=== PATIENT | male | born 1980 | race Caucasian/White ===

== ENCOUNTER 2017-09-30 20:19 | Emergency (ER) | payer BC ==
[2017-09-30 20:43] VITALS: RESP 18; TEMP 99.4
[2017-09-30] MEDS ORDERED: RX INFO: IV CONTRAST WAS GIVEN 1 EACH MISC MISCELLANE PRN (21:32)
[2017-09-30] MEDS ORDERED: SODIUM CHLORIDE 0.9% 1,000 ML IV STA (21:32)
[2017-09-30] MEDS ORDERED: HYDROmorphone 2 MG/ML 1 ML SYRINGE IVP STA (21:32)
[2017-09-30] MEDS ORDERED: ONDANSETRON 4 MG/2 ML VIAL IVP STA (21:32)
[2017-09-30 22:15] LABS: Appearance,Urine Clear (Clear); Bilirubin,Urine Negative (Negative); Blood,Urine Negative (Negative); Color,Urine Yellow; Glucose,Urine (UA) Negative (Negative); Ketones,Urine Negative (Negative); Leukocyte Esterase,Urine Negative (Negative); Nitrite,Urine Negative (Negative); PH, Urine 5.5 (5.0-8.0); Protein,Urine Negative (Negative); Specific Gravity,Urine 1.018 (1.001-1.035); Urobilinogen,Urine <2.0 mg/dL (<2.0)
[2017-09-30] MEDS ORDERED: LABETALOL 5 MG/ML VIAL MDV IVP STA (22:17)
--- NOTE | 2017-09-30 22:18 | ED ---
Abdominal Pain HPI - General Chief Complaint: Abdominal Pain Stated Complaint: Abd Pain Time Seen by Provider: 09/30/17 21:16 Source: patient, RN notes reviewed, old records reviewed Mode of arrival: ambulatory Limitations: no limitations - History of Present Illness Initial Comments: This patient is a [id number] male presents emergency department today chief complaint of left side abdominal pain. He reports he woke up this morning with the pain. He reports he's had normal bowel movements. Denies any nausea or vomiting fevers or chills. Patient states he has no urinary symptoms. He states the pain is worse with certain movements going over bumps in the car. Patient reports that he has not seen a medical doctor in many years. He does have a history of hypertension. - Related Data Home Medications Medication Instructions Recorded Confirmed No Known Home Medications [No 09/30/17 09/30/17 Known Home Medications] Allergies Allergy/AdvReac Type Severity Reaction Status Date / Time No Known Allergies Allergy Verified 09/30/17 21:15 Review of Systems ROS Statement: Those systems with pertinent positive or pertinent negative responses have been documented in the HPI. ROS Other: All systems not noted in ROS Statement are negative. Past Medical History Past Medical History: No Reported History History of Any Multi-Drug Resistant Organisms: None Reported Past Surgical History: No Surgical Hx Reported Past Psychological History: No Psychological Hx Reported Smoking Status: Current every day smoker Past Alcohol Use History: Occasional Past Drug Use History: Marijuana General Exam - General Exam Comments Initial Comments: This patient is a 37-year-old morbidly obese male. Limitations: no limitations General appearance: alert, in no apparent distress Head exam: Present: atraumatic, normocephalic, normal inspection Eye exam: Present: normal appearance, PERRL, EOMI. Absent: scleral icterus, conjunctival injection, periorbital swelling ENT exam: Present: normal exam, mucous membranes moist Neck exam: Present: normal inspection. Absent: tenderness, meningismus, lymphadenopathy Respiratory exam: Present: normal lung sounds bilaterally. Absent: respiratory distress, wheezes, rales, rhonchi, stridor Cardiovascular Exam: Present: regular rate, normal rhythm, normal heart sounds. Absent: systolic murmur, diastolic murmur, rubs, gallop, clicks GI/Abdominal exam: Present: soft, tenderness (Left abdominal tenderness, worse with movement. ), normal bowel sounds. Absent: distended, guarding, rebound, rigid Extremities exam: Present: normal inspection, full ROM, normal capillary refill. Absent: tenderness, pedal edema, joint swelling, calf tenderness Back exam: Present: normal inspection Neurological exam: Present: alert, oriented X3, CN II-XII intact Psychiatric exam: Present: normal affect, normal mood Course Vital Signs 09/30/17 09/30/17 20:40 22:37 Temperature 99.4 F Pulse Rate 100 92 Respiratory 18 18 Rate Blood Pressure 190/102 162/82 O2 Sat by Pulse 97 96 Oximetry Medical Decision Making - Medical Decision Making This is a 37-year-old male with history of morbid obesity and hypertension presents today with left side abdominal pain that started this morning when he woke up. He has no other associated symptoms including fever, chills, nausea, vomiting or changes in bowel habits. Patient does have some tenderness over the abdomen. Specifically left quadrant. It's worse with certain movements. Patient was given IV fluids labwork obtained. Patient's labwork was all reviewed and within normal limits. Patient's urinalysis is negative. At this time I did do a computed tomography scan given patient's obesity unable to fully identified on its cause of patient's pain. CT is negative for any acute process. Discussed most likely musculoskeletal pain. Patient informed of these results. Patient is a pressure to his care. I discussed Motrin Tylenol and antiinflammatory medication. Discussed heat. Patient does have a primary care provider appointment on October 16. Discussed the importance of following up. Discussed the importance of weight loss as well. Patient agrees treatment plan will comply. Return parameters were discussed. - Lab Data Result diagrams: 09/30/17 22:05 09/30/17 22:05 Lab Results 09/30/17 09/30/17 09/30/17 Range/Units 22:05 22:05 22:05 WBC 10.1 (3.8-10.6) k/uL RBC 5.19 (4.30-5.90) m/uL Hgb 13.6 (13.0-17.5) gm/dL Hct 43.3 (39.0-53.0) % MCV 83.4 (80.0-100.0) fL MCH 26.2 (25.0-35.0) pg MCHC 31.4 (31.0-37.0) g/dL RDW 15.8 H (11.5-15.5) % Plt Count 291 (150-450) k/uL Neutrophils % 74 % Lymphocytes % 17 % Monocytes % 5 % Eosinophils % 2 % Basophils % 0 % Neutrophils # 7.5 (1.3-7.7) k/uL Lymphocytes # 1.7 (1.0-4.8) k/uL Monocytes # 0.5 (0-1.0) k/uL Eosinophils # 0.2 (0-0.7) k/uL Basophils # 0.0 (0-0.2) k/uL Hypochromasia Slight PT 9.5 (9.0-12.0) sec INR 1.0 (<1.2) APTT 22.8 (22.0-30.0) sec Sodium 142 (137-145) mmol/L Potassium 4.2 (3.5-5.1) mmol/L Chloride 102 (98-107) mmol/L Carbon Dioxide 29 (22-30) mmol/L Anion Gap 11 mmol/L BUN 15 (9-20) mg/dL Creatinine 0.60 L (0.66-1.25) mg/dL Est GFR (MDRD) Af Amer >60 (>60 ml/min/1.73 sqM) Est GFR (MDRD) Non-Af >60 (>60 ml/min/1.73 sqM) Glucose 103 H (74-99) mg/dL Calcium 9.8 (8.4-10.2) mg/dL Total Bilirubin 0.3 (0.2-1.3) mg/dL AST 27 (17-59) U/L ALT 41 (21-72) U/L Alkaline Phosphatase 78 (38-126) U/L Troponin I (0.000-0.034) ng/mL Total Protein 7.7 (6.3-8.2) g/dL Albumin 4.3 (3.5-5.0) g/dL Amylase 52 (30-110) U/L Lipase 50 (23-300) U/L Urine Color Urine Appearance (Clear) Urine pH (5.0-8.0) Ur Specific [place] (1.001-1.035) Urine Protein (Negative) Urine Glucose (UA) (Negative) Urine Ketones (Negative) Urine Blood (Negative) Urine Nitrite (Negative) Urine Bilirubin (Negative) Urine Urobilinogen (<2.0) mg/dL Ur Leukocyte Esterase (Negative) 09/30/17 09/30/17 Range/Units 22:05 22:05 WBC (3.8-10.6) k/uL RBC (4.30-5.90) m/uL Hgb (13.0-17.5) gm/dL Hct (39.0-53.0) % MCV (80.0-100.0) fL MCH (25.0-35.0) pg MCHC (31.0-37.0) g/dL RDW (11.5-15.5) % Plt Count (150-450) k/uL Neutrophils % % Lymphocytes % % Monocytes % % Eosinophils % % Basophils % % Neutrophils # (1.3-7.7) k/uL Lymphocytes # (1.0-4.8) k/uL Monocytes # (0-1.0) k/uL Eosinophils # (0-0.7) k/uL Basophils # (0-0.2) k/uL Hypochromasia PT (9.0-12.0) sec INR (<1.2) APTT (22.0-30.0) sec Sodium (137-145) mmol/L Potassium (3.5-5.1) mmol/L Chloride (98-107) mmol/L Carbon Dioxide (22-30) mmol/L Anion Gap mmol/L BUN (9-20) mg/dL Creatinine (0.66-1.25) mg/dL Est GFR (MDRD) Af Amer (>60 ml/min/1.73 sqM) Est GFR (MDRD) Non-Af (>60 ml/min/1.73 sqM) Glucose (74-99) mg/dL Calcium (8.4-10.2) mg/dL Total Bilirubin (0.2-1.3) mg/dL AST (17-59) U/L ALT (21-72) U/L Alkaline Phosphatase (38-126) U/L Troponin I <0.012 (0.000-0.034) ng/mL Total Protein (6.3-8.2) g/dL Albumin (3.5-5.0) g/dL Amylase (30-110) U/L Lipase (23-300) U/L Urine Color Yellow Urine Appearance Clear (Clear) Urine pH 5.5 (5.0-8.0) Ur Specific [place] 1.018 (1.001-1.035) Urine Protein Negative (Negative) Urine Glucose (UA) Negative (Negative) Urine Ketones Negative (Negative) Urine Blood Negative (Negative) Urine Nitrite Negative (Negative) Urine Bilirubin Negative (Negative) Urine Urobilinogen <2.0 (<2.0) mg/dL Ur Leukocyte Esterase Negative (Negative) - Radiology Data Radiology results: report reviewed Patient CT shows evidence of coronary megaly an umbilical hernia noted. Normal appendix. Dilated images show very little contrast within the renal collecting systems which could relate to renal failure. Clinical correlation is recommended. I did discuss this. He has normal BUN and creatinine. Disposition Clinical Impression: Muscular abdominal pain in left lower quadrant Disposition: HOME SELF-CARE Condition: Good Instructions: Abdominal Pain (ED) Additional Instructions: Patient has a take Motrin Tylenol for pain. Apply OVER the area. Limit follow- up with primary care physician. Return to the emergency department if any alarming signs or symptoms occur. Referrals: Rocco Rodrigez DO [Primary Care Provider] - 1-2 days Time of Disposition: 23:31
[2017-09-30 22:20] LABS: Basophils % (A) 0 %; Eosinophils # (A) 0.2 k/uL (0-0.7); Eosinophils % (A) 2 %; HCT 43.3 % (39.0-53.0); HGB 13.6 gm/dL (13.0-17.5); Hypochromasia Slight; Lymphocytes # (A) 1.7 k/uL (1.0-4.8); Lymphocytes % (A) 17 %; MCH 26.2 pg (25.0-35.0); MCHC 31.4 g/dL (31.0-37.0); MCV 83.4 fL (80.0-100.0); Mean Platelet Volume 7.7; Monocytes # (A) 0.5 k/uL (0-1.0); Monocytes % (A) 5 %; Neutrophils # (A) 7.5 k/uL (1.3-7.7); Neutrophils % (A) 74 %; Platelet Count 291 k/uL (150-450); RBC 5.19 m/uL (4.30-5.90); RDW 15.8 % (11.5-15.5); WBC 10.1 k/uL (3.8-10.6)
[2017-09-30 22:27] LABS: Partial Thromboplastin Time 22.8 sec (22.0-30.0); Prothrombin Time 9.5 sec (9.0-12.0)
[2017-09-30 22:32] LABS: ALT 41 U/L (21-72); AST 27 U/L (17-59); Albumin 4.3 g/dL (3.5-5.0); Alkaline Phosphatase 78 U/L (38-126); Amylase 52 U/L (30-110); Anion Gap 11 mmol/L; Blood Urea Nitrogen 15 mg/dL (9-20); Calcium 9.8 mg/dL (8.4-10.2); Carbon Dioxide 29 mmol/L (22-30); Chloride 102 mmol/L (98-107); Glucose 103 mg/dL (74-99); Lipase 50 U/L (23-300); Sodium 142 mmol/L (137-145); Total Bilirubin 0.3 mg/dL (0.2-1.3); Total Protein 7.7 g/dL (6.3-8.2)
[2017-09-30 22:34] LABS: Potassium 4.2 mmol/L (3.5-5.1)
[2017-09-30 22:39] VITALS: BP 162/82; PULSE 92
--- NOTE | 2017-09-30 22:51 | CT ---
EXAMINATION TYPE: CT abdomen pelvis w con DATE OF EXAM: 09/30/2017 COMPARISON: None HISTORY: Abdominal pain today. CT DLP: 5357.3 mGycm Automated exposure control for dose reduction was used. TECHNIQUE: Helical acquisition of images was performed from the lung bases through the pelvis. CONTRAST: Performed without Oral Contrast and with IV Contrast, patient injected with 100 mL of Omnipaque 300. FINDINGS: The lung bases are clear of consolidation. There is no pleural effusion. There is no pericardial effu marguerite. Heart is slightly enlarged. Liver spleen pancreas appear normal. Gallbladder appears normal. Bile ducts are not dilated. There is no adrenal mass. Kidneys have normal size and contour. There is no hydronephrosis. There is satisfac tory contrast opacification of the kidneys. There is very little contrast in the kidneys on the delay ed images in the renal collecting systems. There is no retroperitoneal adenopathy. There is no ascite s. Bladder distends smoothly. There is no evidence of a pelvic mass. I see no bony destructive proces s. There is no intestinal wall thickening. There are no dilated loops. There is mild facet arthropath y in the lower lumbar spine. There is no sign of appendicitis. There is umbilical hernia that contain s omental fat. IMPRESSION: CARDIOMEGALY. UMBILICAL HERNIA. NORMAL APPENDIX. DELAYED IMAGES SHOW VERY LITTLE CONTRAST IN THE RENAL COLLECTING SYSTEMS THAT COULD RELATE TO ACUTE R ENAL FAILURE. CLINICAL CORRELATION IS RECOMMENDED.
== END 2017-09-30 23:45 | disposition home or self-care (01) ==
LOC: EC 20:19
DX: R10.32 Left lower quadrant pain (principal); K42.9 Umbilical hernia without obstruction or gangrene; E66.01 Morbid (severe) obesity due to excess calories; F17.200 Nicotine dependence, unspecified, uncomplicated; Z68.43 Body mass index [BMI] 50.0-59.9, adult; Z53.8 Procedure and treatment not carried out for other reasons
CPT/HCPCS: 99285; 96374; 96375; 96361 ×2; 36415; 80053; 82150; 83690; 84484; 85025; 85610; 85730; 81003; 74177; J1170; J2405; Q9967

== ENCOUNTER 2018-11-03 13:46 | Emergency (ER) | payer BC ==
[2018-11-03 14:24] VITALS: RESP 18
[2018-11-03] MEDS ORDERED: SODIUM CHLORIDE 0.9% 1,000 ML IV STA (14:27)
--- NOTE | 2018-11-03 14:59 | ED ---
Abdominal Pain HPI - General Chief Complaint: Abdominal Pain Stated Complaint: Abd pain Time Seen by Provider: 11/03/18 14:27 Source: patient, RN notes reviewed, old records reviewed Mode of arrival: ambulatory Limitations: no limitations - History of Present Illness Initial Comments: 28-year-old male to the ER for evaluation. Patient presented with left lower quadrant abdominal pain history of the same 05 and 10 years ago unsure of cause was. Patient was in ER one year ago for abdominal pain unsure of cause. Patient denies nausea no vomiting no fevers. No diarrhea no blood in his stool no dysuria. Patient symptoms are progressive but started suddenly, worsening no modifying factors. Patient has no known significant medical history no surgical history MD Complaint: abdominal pain -: days(s) Location: LLQ, suprapubic Radiation: LLQ, suprapubic Severity: mild Severity scale (1-10): 2 Quality: aching Consistency: constant Improves With: nothing Worsens With: nothing Associated Symptoms: nausea, vomiting - Related Data Home Medications Medication Instructions Recorded Confirmed Ibuprofen [Motrin Ib] 800 mg PO Q6H PRN 11/03/18 11/03/18 Allergies Allergy/AdvReac Type Severity Reaction Status Date / Time No Known Allergies Allergy Verified 11/03/18 14:41 Review of Systems ROS Statement: Those systems with pertinent positive or pertinent negative responses have been documented in the HPI. ROS Other: All systems not noted in ROS Statement are negative. Past Medical History Past Medical History: No Reported History History of Any Multi-Drug Resistant Organisms: None Reported Past Surgical History: No Surgical Hx Reported Past Psychological History: No Psychological Hx Reported Smoking Status: Current every day smoker Past Alcohol Use History: Occasional Past Drug Use History: Marijuana General Exam Limitations: no limitations General appearance: alert, in no apparent distress, obese Head exam: Present: atraumatic, normocephalic, normal inspection Eye exam: Present: normal appearance, PERRL, EOMI. Absent: scleral icterus, conjunctival injection, periorbital swelling ENT exam: Present: normal exam, mucous membranes moist Neck exam: Present: normal inspection. Absent: tenderness, meningismus, lymphadenopathy Respiratory exam: Present: normal lung sounds bilaterally. Absent: respiratory distress, wheezes, rales, rhonchi, stridor Cardiovascular Exam: Present: regular rate, normal rhythm, normal heart sounds. Absent: systolic murmur, diastolic murmur, rubs, gallop, clicks GI/Abdominal exam: Present: soft, normal bowel sounds. Absent: distended, tenderness, guarding, rebound, rigid Extremities exam: Present: normal inspection, full ROM, normal capillary refill. Absent: tenderness, pedal edema, joint swelling, calf tenderness Back exam: Present: normal inspection Neurological exam: Present: alert, oriented X3, CN II-XII intact Psychiatric exam: Present: normal affect, normal mood Skin exam: Present: warm, dry, intact, normal color. Absent: rash Course Vital Signs 11/03/18 14:20 Temperature 98.4 F Pulse Rate 97 Respiratory 18 Rate Blood Pressure 189/105 O2 Sat by Pulse 97 Oximetry - Reevaluation(s) Reevaluation #1: 11/03/18 16:07 Medical record is reviewed Reevaluation #2: 11/03/18 16:07 Patient has pain control Medical Decision Making - Medical Decision Making 28 male the ER for evaluation of bowel pain, nonspecific. Left lower quadrant, labwork is normal CT is normal. Patient can be discharged - Lab Data Result diagrams: 11/03/18 14:55 11/03/18 14:55 Lab Results 11/03/18 11/03/18 Range/Units 14:55 14:55 WBC 9.1 (3.8-10.6) k/uL RBC 5.37 (4.30-5.90) m/uL Hgb 13.8 (13.0-17.5) gm/dL Hct 44.4 (39.0-53.0) % MCV 82.7 (80.0-100.0) fL MCH 25.8 (25.0-35.0) pg MCHC 31.2 (31.0-37.0) g/dL RDW 14.9 (11.5-15.5) % Plt Count 310 (150-450) k/uL Neutrophils % 79 % Lymphocytes % 12 % Monocytes % 6 % Eosinophils % 1 % Basophils % 0 % Neutrophils # 7.2 (1.3-7.7) k/uL Lymphocytes # 1.1 (1.0-4.8) k/uL Monocytes # 0.6 (0-1.0) k/uL Eosinophils # 0.1 (0-0.7) k/uL Basophils # 0.0 (0-0.2) k/uL Sodium 141 (137-145) mmol/L Potassium 4.4 (3.5-5.1) mmol/L Chloride 106 (98-107) mmol/L Carbon Dioxide 27 (22-30) mmol/L Anion Gap 8 mmol/L BUN 18 (9-20) mg/dL Creatinine 0.60 L (0.66-1.25) mg/dL Est GFR (CKD-EPI)AfAm >90 (>60 ml/min/1.73 sqM) Est GFR (CKD-EPI)NonAf >90 (>60 ml/min/1.73 sqM) Glucose 133 H (74-99) mg/dL Calcium 9.0 (8.4-10.2) mg/dL Total Bilirubin 0.4 (0.2-1.3) mg/dL AST 22 (17-59) U/L ALT 51 (21-72) U/L Alkaline Phosphatase 88 (38-126) U/L Total Protein 6.9 (6.3-8.2) g/dL Albumin 4.2 (3.5-5.0) g/dL Amylase 34 (30-110) U/L Lipase 65 (23-300) U/L - Radiology Data Radiology results: report reviewed (CT abdomen pelvis negative for acute disease ), image reviewed Disposition Clinical Impression: Abdominal pain Disposition: HOME SELF-CARE Condition: Good Instructions (If sedation given, give patient instructions): Abdominal Pain (ED ) Is patient prescribed a controlled substance at d/c from ED?: No Referrals: Rocco Rodrigez DO [Primary Care Provider] - 1-2 days
[2018-11-03 15:17] LABS: Basophils % (A) 0 %; Eosinophils # (A) 0.1 k/uL (0-0.7); Eosinophils % (A) 1 %; HCT 44.4 % (39.0-53.0); HGB 13.8 gm/dL (13.0-17.5); Lymphocytes # (A) 1.1 k/uL (1.0-4.8); Lymphocytes % (A) 12 %; MCH 25.8 pg (25.0-35.0); MCHC 31.2 g/dL (31.0-37.0); MCV 82.7 fL (80.0-100.0); Mean Platelet Volume 6.8; Monocytes # (A) 0.6 k/uL (0-1.0); Monocytes % (A) 6 %; Neutrophils # (A) 7.2 k/uL (1.3-7.7); Neutrophils % (A) 79 %; Platelet Count 310 k/uL (150-450); RBC 5.37 m/uL (4.30-5.90); RDW 14.9 % (11.5-15.5); WBC 9.1 k/uL (3.8-10.6)
[2018-11-03 15:26] LABS: ALT 51 U/L (21-72); AST 22 U/L (17-59); Albumin 4.2 g/dL (3.5-5.0); Alkaline Phosphatase 88 U/L (38-126); Amylase 34 U/L (30-110); Anion Gap 8 mmol/L; Blood Urea Nitrogen 18 mg/dL (9-20); Carbon Dioxide 27 mmol/L (22-30); Chloride 106 mmol/L (98-107); Glucose 133 mg/dL (74-99); Lipase 65 U/L (23-300); Potassium 4.4 mmol/L (3.5-5.1); Sodium 141 mmol/L (137-145); Total Bilirubin 0.4 mg/dL (0.2-1.3); Total Protein 6.9 g/dL (6.3-8.2)
--- NOTE | 2018-11-03 16:27 | CT ---
EXAMINATION TYPE: CT abdomen pelvis wo con DATE OF EXAM: 11/03/2018 COMPARISON: 09/30/2017 INDICATION: Left lower quadrant to groin pain. DLP: 2885 mGycm, Automated exposure control for dose reduction was used. CONTRAST: 0 mL of Isovue 300. Study performed without Oral Contrast TECHNIQUE: Axial images were obtained from above the diaphragm to the pubic rami in the axial plane a t 5 mm thick sections. Reconstructed images are reviewed on the computer in the coronal plane. FINDINGS: Limited CT sections are obtained the lung bases. The lung bases are clear. CT ABDOMEN: Liver: There is mild fatty infiltration to the liver. No discrete masses or cysts are evident. Spleen: Normal Pancreas: Normal Adrenal glands: The adrenal glands are normal. Gallbladder: Normal Kidneys: No masses are evident. No hydronephrosis is present. No cysts are present. No renal stone s are identified. No hydroureter is evident. Aorta: Normal Inferior vena cava: Normal. CT PELVIS: There is a periumbilical hernia containing mesenteric fat measuring approximately 1.9 cm a n opening. Loops of bowel within the abdomen and pelvis are normal. There are loops of bowel which are incom pletely distended or lack oral contrast limiting their evaluation. Appendix: Normal as visualized. Urinary bladder: Normal. Genitourinary structures: Prostate is prominent. Osseous structures: No suspicious lytic or sclerotic lesions. Phlebolith is noted within the pelvis. IMPRESSIONS: 1. Periumbilical hernia containing mesenteric fat. 2. No suspicious renal or ureteral stones. No hydronephrosis or hydroureter is evident.
[2018-11-03 16:59] VITALS: BP 135/75; PULSE 87; TEMP 97.4
== END 2018-11-03 16:55 | disposition home or self-care (01) ==
LOC: EC 13:46
DX: R10.32 Left lower quadrant pain (principal); R11.2 Nausea with vomiting, unspecified; F17.200 Nicotine dependence, unspecified, uncomplicated
CPT/HCPCS: 36415; 74176; 80053; 82150; 83690; 85025; 96360; 99284

== ENCOUNTER 2019-04-23 13:47 | Emergency (ER) | payer BC ==
[2019-04-23 13:55] VITALS: TEMP 98.2
--- NOTE | 2019-04-23 14:31 | ED ---
General Adult HPI - General Source: patient Mode of arrival: ambulatory Limitations: no limitations <Monico Canchola - Last Filed: 04/23/19 14:31> <Saira Zamora - Last Filed: 04/24/19 02:04> - General Chief complaint: Psychiatric Symptoms Stated complaint: Mental Health Time Seen by Provider: 04/23/19 14:03 - History of Present Illness Initial comments: Dictation was produced using [employer] dictation software. please excuse any grammatical, word or spelling errors. Chief Complaint: 39-year-old male past medical history of hypertension presents with suicidal ideation. History of Present Illness: A 39-year-old male who presents with suicidal ideation. Patient has been depressed with relationships, family and work. Patient is considering overdosing on his blood pressure meds. Patient did attempt suicide 12 years ago. He has no other psychiatric history. Patient has no medical illness at this time. He presents here voluntarily. The ROS documented in this emergency department record has been reviewed and confirmed by me. Those systems with pertinent positive or negative responses have been documented in the HPI. All other systems are other negative and/or noncontributory. PHYSICAL EXAM: General Impression: Alert and oriented x3, not in acute distress HEENT: Normocephalic atraumatic, extra-ocular movements intact, pupils equal and reactive to light bilaterally, mucous membranes moist. Cardiovascular: Heart regular rate and rhythm, S1&S2 audible, no murmurs, rubs or gallops Chest: Lungs clear to auscultation bilaterally, no rhonchi, no wheeze, no rales Abdomen: Bowel sounds present, abdomen soft, non-tender, non-distended, no organomegaly Musculoskeletal: Pulses present and equal in all extremities, no peripheral edema Motor: no focal deficits noted Neurological: CN II-XII grossly intact, no focal motor or sensory deficits noted Skin: Intact with no visualized rashes Psych: Normal affect and mood ED course: 39 yo Male presents with chief complaint of suicidal ideation. All signs upon arrival shows blood pressure 192/139, worse vital signs within acceptable limits. Patient has no hypertension complaints. Patient feels well medically. Patient's medical cleared for EPS evaluation. (Monico Canchola) - Related Data Home Medications Medication Instructions Recorded Confirmed No Known Home Medications 04/23/19 04/23/19 Allergies Allergy/AdvReac Type Severity Reaction Status Date / Time No Known Allergies Allergy Verified 04/23/19 14:09 Review of Systems ROS Other: All systems not noted in ROS Statement are negative. <Monico Canchola - Last Filed: 04/23/19 14:31> ROS Other: All systems not noted in ROS Statement are negative. <Saira Zamora - Last Filed: 04/24/19 02:04> ROS Statement: Those systems with pertinent positive or pertinent negative responses have been documented in the HPI. Past Medical History Past Medical History: Hypertension History of Any Multi-Drug Resistant Organisms: None Reported Past Surgical History: No Surgical Hx Reported Past Psychological History: Depression Smoking Status: Current every day smoker Past Alcohol Use History: Rare Past Drug Use History: Marijuana <Monico Canchola - Last Filed: 04/23/19 14:31> General Exam Limitations: no limitations <Monico Canchola - Last Filed: 04/23/19 14:31> Course Vital Signs 04/23/19 04/23/19 04/23/19 13:51 15:00 17:45 Temperature 98.2 F Pulse Rate 100 78 98 Respiratory 18 18 20 Rate Blood Pressure 192/139 156/88 168/98 O2 Sat by Pulse 95 99 98 Oximetry Medical Decision Making <Saira Zamora - Last Filed: 04/24/19 02:04> - Medical Decision Making I was asked to the patient to fill out a clinical certificate as the patient is actively suicidal with plan. He states he has a history of one previous suicide attempt, is not currently on any medications, and currently has a plan of overdosing on his blood pressure medications. Denies homicidal ideations or hallucinations. I was asked by EPS to lower the patient's blood pressure, as [facility] will not accept patient's with a SBP of >150. Patient at this time currently has asymptomatic hypertension, and lowering his blood pressure acutely is not medically indicated, and could possibly harm the patient. The patient states he takes Lisinopril HCTZ 25 mg. His home dose is ordered so he can continue his prescribed therapy. (Saira Zamora) - Lab Data Lab Results 04/23/19 Range/Units 17:40 Urine Opiates Screen Not Detected (NotDetected) Ur Oxycodone Screen Not Detected (NotDetected) Urine Methadone Screen Not Detected (NotDetected) Ur Propoxyphene Screen Not Detected (NotDetected) Ur Barbiturates Screen Not Detected (NotDetected) U Tricyclic Antidepress Not Detected (NotDetected) Ur Phencyclidine Scrn Not Detected (NotDetected) Ur Amphetamines Screen Not Detected (NotDetected) U Methamphetamines Scrn Not Detected (NotDetected) U Benzodiazepines Scrn Not Detected (NotDetected) Urine Cocaine Screen Not Detected (NotDetected) U Marijuana (THC) Screen Detected H (NotDetected) Disposition <Monico Canchola D - Last Filed: 04/23/19 14:31> Is patient prescribed a controlled substance at d/c from ED?: No - Out of Hospital Transfer - Req. Specs Out of Hospital Transfer - Requested Specifics: Psychiatric Non-ICU ([facility]) <Saira Zamora E - Last Filed: 04/24/19 02:04> Clinical Impression: Suicidal ideations Disposition: TRANSFER TO PSYCH HOSP/UNIT Referrals: Rocco Rodrigez DO [Primary Care Provider] - 1-2 days
[2019-04-23] MEDS ORDERED: KETOROLAC 30 MG/ML 1 ML VIAL IM STA (15:51)
[2019-04-23 18:19] LABS: Amphetamine Screen,Urine Not Detected (NotDetected); Barbiturate Screen,Urine Not Detected (NotDetected); Benzodiazepines Screen,Urine Not Detected (NotDetected); Cocaine Screen,Urine Not Detected (NotDetected); Methadone Screen, Urine Not Detected (NotDetected); Opiate Screen,Urine Not Detected (NotDetected); Oxycodone Screen, Urine Not Detected (NotDetected); Phencyclidine Screen,Urine Not Detected (NotDetected); Tricyclic Antidepressant,Urine Not Detected (NotDetected); Urn Cannabinoid Scrn Detected (NotDetected)
[2019-04-24] MEDS ORDERED: LISINOPRIL-HCTZ 20-25 MG 1 EACH TAB PO STA (02:01)
[2019-04-24 02:48] VITALS: BP 139/77; PULSE 71; RESP 18
== END 2019-04-24 06:02 ==
LOC: EC 13:47
DX: R45.851 Suicidal ideations (principal); I10 Essential (primary) hypertension; F17.200 Nicotine dependence, unspecified, uncomplicated
CPT/HCPCS: 82075; 80306; 99285; 96372; J1885

== ENCOUNTER 2019-06-08 05:37 | Inpatient (IN) | payer BC ==
[2019-06-08] MEDS ORDERED: SODIUM CHLORIDE 0.9% 2,000 ML IV STA (06:26)
[2019-06-08] MEDS ORDERED: CALCIUM GLUCONATE 1 GM in SODIUM CHLORIDE 0.9% 100 ML IVPB ONE ×2 (06:34→23:00)
[2019-06-08] MEDS ORDERED: GLUCAGON 1 MG/ML VIAL IVP STA (06:35)
--- NOTE | 2019-06-08 06:37 | ED ---
Overdose HPI - General Source: police, EMS Limitations: altered mental status - History of Present Illness Complaint: intentional overdose Onset/Timin -: hour(s) Intent: suicide attempt <Car Madsen - Last Filed: 06/08/19 07:55> <Jj Ortiz - Last Filed: 06/08/19 08:24> - General Chief Complaint: Overdose Stated Complaint: Attempted suicide Time Seen by Provider: 06/08/19 06:36 - History of Present Illness Initial Comments: Patient's 39-year-old man brought to be evaluated for suspected overdose. The patient had written a suicide letter to family members. He reportedly had taken overdose of his pills. He states that he took the pills at around 2 AM. There are number of pill vials however it is difficult to quantify the amount that would've remained as they are of various dates. Patient may have taken bupropion, amlodipine/hydrochlorothiazide, trazodone. Patient states she also had been drinking some alcohol. The patient does appear to be somnolent but arouses to voice. He is not fully cooperative with the history and physical. (Car Madsen) - Related Data Home Medications Medication Instructions Recorded Confirmed Lisinopril-Hctz 20-12.5 mg 1 tab PO DAILY 06/08/19 06/08/19 [Zestoretic 20-12.5] Sertraline [Zoloft] 100 mg PO DAILY 06/08/19 06/08/19 amLODIPine [Norvasc] 5 mg PO DAILY 06/08/19 06/08/19 buPROPion HCL [Wellbutrin SR] 200 mg PO DAILY 06/08/19 06/08/19 hydrOXYzine HCL [Atarax] 10 mg PO TID 06/08/19 06/08/19 traZODone HCL [Desyrel] 100 mg PO HS 06/08/19 06/08/19 Allergies Allergy/AdvReac Type Severity Reaction Status Date / Time No Known Allergies Allergy Verified 06/08/19 08:18 Review of Systems ROS Other: All systems not noted in ROS Statement are negative. Limitations: ROS unobtainable due to patients medical condition <Car Madsen - Last Filed: 06/08/19 07:55> ROS Other: All systems not noted in ROS Statement are negative. <Jj Ortiz - Last Filed: 06/08/19 08:24> ROS Statement: Those systems with pertinent positive or pertinent negative responses have been documented in the HPI. Past Medical History Past Medical History: Hypertension History of Any Multi-Drug Resistant Organisms: None Reported Past Surgical History: No Surgical Hx Reported Past Psychological History: Depression Smoking Status: Current every day smoker Past Alcohol Use History: Rare Past Drug Use History: Marijuana <Car Madsen - Last Filed: 06/08/19 07:55> General Exam Limitations: altered mental status General appearance: appears intoxicated Head exam: Present: atraumatic, normocephalic Eye exam: Present: PERRL, nystagmus ENT exam: Present: mucous membranes dry Neck exam: Present: normal inspection Respiratory exam: Present: normal lung sounds bilaterally. Absent: respiratory distress, wheezes, rales, rhonchi, stridor Cardiovascular Exam: Present: regular rate, normal rhythm, normal heart sounds. Absent: systolic murmur, diastolic murmur, rubs, gallop GI/Abdominal exam: Present: soft. Absent: distended, tenderness, guarding, rebound, rigid Extremities exam: Present: normal inspection, normal capillary refill. Absent: pedal edema, calf tenderness Back exam: Present: normal inspection. Absent: CVA tenderness (R), CVA tenderness (L) Neurological exam: Present: altered. Absent: motor sensory deficit Skin exam: Present: warm, dry, intact, normal color. Absent: rash <Car Madsen - Last Filed: 06/08/19 07:55> Course Vital Signs 06/08/19 06/08/19 06/08/19 05:43 05:48 05:50 Temperature 98.5 F Pulse Rate 91 86 Respiratory 24 Rate Blood Pressure 92/58 92/58 92/58 O2 Sat by Pulse 92 L 95 Oximetry 06/08/19 06/08/19 06/08/19 06:00 06:10 06:20 Temperature Pulse Rate 86 89 93 Respiratory Rate Blood Pressure 72/33 77/37 88/56 O2 Sat by Pulse 95 96 95 Oximetry 06/08/19 06/08/19 06/08/19 06:30 06:40 07:02 Temperature Pulse Rate 87 87 Respiratory 26 H Rate Blood Pressure 88/56 79/34 84/50 O2 Sat by Pulse 95 95 Oximetry 06/08/19 06/08/19 06/08/19 07:03 07:08 07:10 Temperature Pulse Rate 89 94 90 Respiratory 30 H 24 31 H Rate Blood Pressure 84/50 99/55 99/55 O2 Sat by Pulse 87 L 95 93 L Oximetry 06/08/19 06/08/19 06/08/19 07:20 07:30 07:40 Temperature Pulse Rate 79 85 86 Respiratory Rate Blood Pressure 107/53 112/53 99/48 O2 Sat by Pulse 95 94 L 92 L Oximetry 06/08/19 06/08/19 06/08/19 07:50 08:00 08:10 Temperature Pulse Rate 88 88 88 Respiratory Rate Blood Pressure 107/49 92/56 111/59 O2 Sat by Pulse 92 L 94 L 91 L Oximetry 06/08/19 08:18 Temperature Pulse Rate 88 Respiratory 20 Rate Blood Pressure 111/59 O2 Sat by Pulse 91 L Oximetry Medical Decision Making - Lab Data Result diagrams: 06/08/19 06:32 06/08/19 06:32 - EKG Data -: EKG Interpreted by Me EKG shows normal: sinus rhythm, axis (Normal), intervals (SD interval 134 ms, QRS duration 102 ms, both are normal. QTC 543 ms, which is prolonged.), QRS complexes (Normal), ST-T waves (Normal) Rate: normal (Rate 91 bpm) <Car Madsen - Last Filed: 06/08/19 07:55> - Lab Data Result diagrams: 06/08/19 06:32 06/08/19 06:32 <Jj Ortiz - Last Filed: 06/08/19 08:24> - Medical Decision Making Case endorsed to me by Dr. Hernandez for observation of blood pressure. Patient reevaluated. Patient resting comfortably in bed and easily arousable to voice. Blood pressure 101/61. Case was discussed in detail with Dr. Guallpa, covering for Dr. Rodrigez, who will admit. (Jj Ortiz) - Lab Data Lab Results 06/08/19 06/08/19 06/08/19 Range/Units 05:32 06:32 06:32 WBC 9.7 (3.8-10.6) k/uL RBC 4.53 (4.30-5.90) m/uL Hgb 12.1 L (13.0-17.5) gm/dL Hct 37.0 L (39.0-53.0) % MCV 81.7 (80.0-100.0) fL MCH 26.6 (25.0-35.0) pg MCHC 32.6 (31.0-37.0) g/dL RDW 14.9 (11.5-15.5) % Plt Count 322 (150-450) k/uL Neutrophils % 77 % Lymphocytes % 14 % Monocytes % 5 % Eosinophils % 2 % Basophils % 1 % Neutrophils # 7.5 (1.3-7.7) k/uL Lymphocytes # 1.3 (1.0-4.8) k/uL Monocytes # 0.5 (0-1.0) k/uL Eosinophils # 0.2 (0-0.7) k/uL Basophils # 0.1 (0-0.2) k/uL PT 10.1 (9.0-12.0) sec INR 0.9 (<1.2) APTT 22.3 (22.0-30.0) sec Sodium 139 (137-145) mmol/L Potassium 3.9 (3.5-5.1) mmol/L Chloride 103 (98-107) mmol/L Carbon Dioxide 24 (22-30) mmol/L Anion Gap 12 mmol/L BUN 18 (9-20) mg/dL Creatinine 1.11 (0.66-1.25) mg/dL Est GFR (CKD-EPI)AfAm >90 (>60 ml/min/1.73 sqM) Est GFR (CKD-EPI)NonAf 83 (>60 ml/min/1.73 sqM) Glucose 116 H (74-99) mg/dL Plasma Lactic Acid Tai (0.7-2.0) mmol/L Calcium 8.6 (8.4-10.2) mg/dL Magnesium 2.0 (1.6-2.3) mg/dL Total Bilirubin 0.4 (0.2-1.3) mg/dL AST 18 (17-59) U/L ALT 33 (21-72) U/L Alkaline Phosphatase 58 (38-126) U/L Troponin I (0.000-0.034) ng/mL Total Protein 6.4 (6.3-8.2) g/dL Albumin 3.7 (3.5-5.0) g/dL Salicylates <1.0 mg/dL Acetaminophen <10.0 ug/mL Serum Alcohol 15 mg/dL 06/08/19 06/08/19 Range/Units 06:32 06:32 WBC (3.8-10.6) k/uL RBC (4.30-5.90) m/uL Hgb (13.0-17.5) gm/dL Hct (39.0-53.0) % MCV (80.0-100.0) fL MCH (25.0-35.0) pg MCHC (31.0-37.0) g/dL RDW (11.5-15.5) % Plt Count (150-450) k/uL Neutrophils % % Lymphocytes % % Monocytes % % Eosinophils % % Basophils % % Neutrophils # (1.3-7.7) k/uL Lymphocytes # (1.0-4.8) k/uL Monocytes # (0-1.0) k/uL Eosinophils # (0-0.7) k/uL Basophils # (0-0.2) k/uL PT (9.0-12.0) sec INR (<1.2) APTT (22.0-30.0) sec Sodium (137-145) mmol/L Potassium (3.5-5.1) mmol/L Chloride (98-107) mmol/L Carbon Dioxide (22-30) mmol/L Anion Gap mmol/L BUN (9-20) mg/dL Creatinine (0.66-1.25) mg/dL Est GFR (CKD-EPI)AfAm (>60 ml/min/1.73 sqM) Est GFR (CKD-EPI)NonAf (>60 ml/min/1.73 sqM) Glucose (74-99) mg/dL Plasma Lactic Acid Tai 2.9 H* (0.7-2.0) mmol/L Calcium (8.4-10.2) mg/dL Magnesium (1.6-2.3) mg/dL Total Bilirubin (0.2-1.3) mg/dL AST (17-59) U/L ALT (21-72) U/L Alkaline Phosphatase (38-126) U/L Troponin I <0.012 (0.000-0.034) ng/mL Total Protein (6.3-8.2) g/dL Albumin (3.5-5.0) g/dL Salicylates mg/dL Acetaminophen ug/mL Serum Alcohol mg/dL Critical Care Time Critical Care Time: Yes Total Critical Care Time: 33 <Jj Ortiz - Last Filed: 06/08/19 08:24> Disposition <Car Madsen - Last Filed: 06/08/19 07:55> Is patient prescribed a controlled substance at d/c from ED?: No Decision Time: 08:24 <Jj Ortiz - Last Filed: 06/08/19 08:24> Clinical Impression: Overdose of calcium-channel archie Disposition: ADMITTED IP TO THIS HOSP Condition: Serious Referrals: Rocco Rodrigez DO [Primary Care Provider] - 1-2 days
[2019-06-08 06:41] LABS: Basophils # (A) 0.1 k/uL (0-0.2); Basophils % (A) 1 %; Eosinophils # (A) 0.2 k/uL (0-0.7); Eosinophils % (A) 2 %; HGB 12.1 gm/dL (13.0-17.5); Lymphocytes # (A) 1.3 k/uL (1.0-4.8); Lymphocytes % (A) 14 %; MCH 26.6 pg (25.0-35.0); MCHC 32.6 g/dL (31.0-37.0); MCV 81.7 fL (80.0-100.0); Mean Platelet Volume 7.2; Monocytes # (A) 0.5 k/uL (0-1.0); Monocytes % (A) 5 %; Neutrophils # (A) 7.5 k/uL (1.3-7.7); Neutrophils % (A) 77 %; Platelet Count 322 k/uL (150-450); RBC 4.53 m/uL (4.30-5.90); RDW 14.9 % (11.5-15.5); WBC 9.7 k/uL (3.8-10.6)
[2019-06-08 06:51] LABS: ALT 33 U/L (21-72); AST 18 U/L (17-59); Acetaminophen <10.0 ug/mL; African American GFR (CKD) >90 (>60 ml/min/1.73 sqM); Albumin 3.7 g/dL (3.5-5.0); Alcohol 15 mg/dL; Alkaline Phosphatase 58 U/L (38-126); Anion Gap 12 mmol/L; Blood Urea Nitrogen 18 mg/dL (9-20); Calcium 8.6 mg/dL (8.4-10.2); Carbon Dioxide 24 mmol/L (22-30); Chloride 103 mmol/L (98-107); Glucose 116 mg/dL (74-99); Potassium 3.9 mmol/L (3.5-5.1); Salicylate <1.0 mg/dL; Sodium 139 mmol/L (137-145); Total Bilirubin 0.4 mg/dL (0.2-1.3); Total Protein 6.4 g/dL (6.3-8.2)
[2019-06-08] MEDS ORDERED: METOCLOPRAMIDE 5 MG/ML 2 ML VIAL IVP STA (06:51)
[2019-06-08] MEDS ORDERED: SODIUM CHLORIDE 0.9% 1,000 ML IV STA (06:51)
[2019-06-08 07:21] LABS: INR 0.9 (<1.2); Partial Thromboplastin Time 22.3 sec (22.0-30.0); Prothrombin Time 10.1 sec (9.0-12.0)
--- NOTE | 2019-06-08 07:34 | XR ---
EXAMINATION TYPE: XR chest 1V portable DATE OF EXAM: 06/08/2019 HISTORY: overdose. REFERENCE: NONE. FINDINGS: The study is limited by the patient's tremendous size. The heart appears enlarged. There is vascular congestion. Both CP angles are obscured. IMPRESSION: LIMITED EXAMINATION DEMONSTRATING CARDIOMEGALY AND VASCULAR CONGESTION.
[2019-06-08] MEDS ORDERED: NALOXONE 0.4 MG/ML 1 ML VIAL IV PRN (08:24)
[2019-06-08 13:14] LABS: Amorphous Sediment,Urine Rare /hpf; Appearance,Urine Clear (Clear); Bilirubin,Urine Negative (Negative); Blood,Urine Negative (Negative); Color,Urine Yellow; Glucose,Urine (UA) Negative (Negative); Hyaline Casts,Urine 16 /lpf (0-2); Ketones,Urine Negative (Negative); Leukocyte Esterase,Urine Trace (Negative); Mucus,Urine Rare /hpf; Nitrite,Urine Negative (Negative); Protein,Urine Negative (Negative); RBC,Urine 1 /hpf (0-5); Specific Gravity,Urine 1.013 (1.001-1.035); Squamous Epithelial Cell,Urine 2 /hpf (0-4); Urobilinogen,Urine <2.0 mg/dL (<2.0); WBC,Urine 5 /hpf (0-5)
[2019-06-08 13:18] LABS: Amphetamine Screen,Urine Not Detected (NotDetected); Barbiturate Screen,Urine Not Detected (NotDetected); Benzodiazepines Screen,Urine Not Detected (NotDetected); Cocaine Screen,Urine Not Detected (NotDetected); Methadone Screen, Urine Not Detected (NotDetected); Opiate Screen,Urine Not Detected (NotDetected); Oxycodone Screen, Urine Not Detected (NotDetected); Phencyclidine Screen,Urine Not Detected (NotDetected); Tricyclic Antidepressant,Urine Not Detected (NotDetected); Urn Cannabinoid Scrn Detected (NotDetected)
[2019-06-08 13:25] LABS: ALT 26 U/L (21-72); AST 17 U/L (17-59); African American GFR (CKD) >90 (>60 ml/min/1.73 sqM); Albumin 3.4 g/dL (3.5-5.0); Alkaline Phosphatase 59 U/L (38-126); Anion Gap 8 mmol/L; Blood Urea Nitrogen 17 mg/dL (9-20); Calcium 8.5 mg/dL (8.4-10.2); Carbon Dioxide 27 mmol/L (22-30); Chloride 103 mmol/L (98-107); Glucose 102 mg/dL (74-99); Magnesium 2.2 mg/dL (1.6-2.3); Potassium 4.3 mmol/L (3.5-5.1); Sodium 138 mmol/L (137-145); Total Bilirubin 0.3 mg/dL (0.2-1.3); Total Protein 5.8 g/dL (6.3-8.2)
[2019-06-08] MEDS ORDERED: SODIUM CHLORIDE 0.9% 1,000 ML IV SCH (14:45)
--- NOTE | 2019-06-08 16:21 | P.HPIM ---
History of Present Illness H&P Date: 06/08/19 Chief Complaint: Overdose History of presenting complaint: This is a 39-year-old patient of Dr. thao. Patient lives with his finances 8 years and has 2 children aged 3 and 6 from her. 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 Patient was here on April 23 with intention to overdose. Patient was transferred from the ER to have an awake. Patient also an episode of suicide attempt about 12 years ago. Patient earlier thousand this morning decided to take an overdose.. He took multiple medications including Desyrel Wellbutrin Norvasc Zoloft Zestoretic he's not sure how many and granddaughter suicide note. This was around 2 AM. After it is S patient had textured girlfriend with intention to harm himself after approximately 1.4 hours after resumption. When the EMS arrived patient vomiting alcohol and bile. Patient is given oxygen at the site and some Zofran. Patient also smoked some marijuana. Patient also had drank alcohol. In the ER patient was somewhat drowsy. Poison control was contacted. Patient is given calcium gluconate. Glucagon and some Reglan. Started on high IV fluids. When I saw the patient earlier today patient somewhat awake able to answer questions watching television and has a sitter at the bedside. Patient still feeling rather low. Feels he has no hope. Psychiatry has been consulted. Patient on telemetry. Some QT prolongation. Review of systems: GEN.: Tired EYES: None HEENT: None NECK: None RESPIRATORY: None CARDIOVASCULAR: None GASTROINTESTINAL: None GENITOURINARY: None MUSCULOSKELETAL: None LYMPHATICS: None HEMATOLOGICAL: None PSYCHIATRY: Depressed NEUROLOGICAL: None Past medical history: Depression, suicide attempt, hypertension Social history: Smokes about 3 quart a pack a day, smokes 2-3 hits of marijuana from a pipe daily, lives with his cancer 8 years of age with 2 children from her. 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 Tired appearing. EYES: Pupils equal. Conjunctiva normal. HEENT: External appearance of nose and ears normal, oral cavity grossly normal. NECK: JVD not raised; masses not palpable. HEART: First and second heart sounds are normal; no edema. LUNGS: Respiratory rate increased, distant breath sounds. ABDOMEN: Soft, nontender, liver spleen not palpable, no masses palpable. PSYCH: [Alert and oriented x3; mood and affect low l. NEUROLOGICAL: Cranial nerves grossly intact; no facial asymmetry, power and sensation grossly intact. LYMPHATICS: No lymph nodes palpable in the axilla and neck INVESTIGATIONS, reviewed in the clinical context: White count 9.7 hemoglobin 12.1 platelets 322 potassium 3.9 creatinine 1.11 lactic acid 2.9 Salicylates less than 1, acetaminophen less than 10, serum alcohol 15 Assessment: -Suicide attempt with multiple medications exact dose unknown to include possibly Desyrel, Wellbutrin, Norvasc, Zestoretic as patient is not sure. -Major depression -Morbid obesity BMI 61.0 -Chronic nicotine dependence patient cigarette smoker -Essential hypertension -Hypotension from antihypertensive overdose - Plan: Patient is put on telemetry. Has a sitter at the bedside. Psychiatry is being consulted. To be followed hemodynamically. Recheck blood pressure more frequently. We'll give the patient IV fluids. Lovenox for DVT prophylaxis. Care was discussed with the patient. Past Medical History Past Medical History: Hypertension History of Any Multi-Drug Resistant Organisms: None Reported Past Surgical History: No Surgical Hx Reported Past Psychological History: Depression Smoking Status: Current every day smoker Past Alcohol Use History: Rare Past Drug Use History: Marijuana Medications and Allergies Home Medications Medication Instructions Recorded Confirmed Type Lisinopril-Hctz 20-12.5 mg 1 tab PO DAILY 06/08/19 06/08/19 History [Zestoretic 20-12.5] Sertraline [Zoloft] 100 mg PO DAILY 06/08/19 06/08/19 History amLODIPine [Norvasc] 5 mg PO DAILY 06/08/19 06/08/19 History buPROPion HCL [Wellbutrin SR] 200 mg PO DAILY 06/08/19 06/08/19 History hydrOXYzine HCL [Atarax] 10 mg PO TID 06/08/19 06/08/19 History traZODone HCL [Desyrel] 100 mg PO HS 06/08/19 06/08/19 History Allergies Allergy/AdvReac Type Severity Reaction Status Date / Time No Known Allergies Allergy Verified 06/08/19 08:18 Physical Exam Vitals: Vital Signs Temp Pulse Pulse Resp BP BP Pulse Ox 06/08/19 15:46 95 06/08/19 12:18 80 16 06/08/19 12:10 80 16 121/57 95 06/08/19 09:20 97.7 F 82 16 119/57 94 L 06/08/19 09:09 98.5 F 84 18 120/57 92 L 06/08/19 08:57 84 18 120/57 92 L 06/08/19 08:50 84 18 120/57 92 L 06/08/19 08:40 87 20 95/52 91 L 06/08/19 08:30 19 101/61 94 L 06/08/19 08:20 107/57 89 L 06/08/19 08:18 88 20 111/59 91 L 06/08/19 08:10 88 111/59 91 L 06/08/19 08:00 88 92/56 94 L 06/08/19 07:50 88 107/49 92 L 06/08/19 07:40 86 99/48 92 L 06/08/19 07:30 85 112/53 94 L 06/08/19 07:20 79 107/53 95 06/08/19 07:10 90 31 H 99/55 93 L 06/08/19 07:08 94 24 99/55 95 06/08/19 07:03 89 30 H 84/50 87 L 06/08/19 07:02 87 26 H 84/50 95 06/08/19 06:40 79/34 06/08/19 06:30 87 88/56 95 06/08/19 06:20 93 88/56 95 06/08/19 06:10 89 77/37 96 06/08/19 06:00 86 72/33 95 06/08/19 05:50 86 92/58 06/08/19 05:48 92/58 95 06/08/19 05:43 98.5 F 91 24 92/58 92 L Intake and Output 06/08/19 06/08/19 06/08/19 06:59 14:59 22:59 Intake Total 3000 Output Total 1000 Balance 2000 Intake: Amount of Fluid Infused ( 3000 ml) Output: Urine 1000 Other: Voiding Method Urinal Weight 204.117 kg Results CBC & Chem 7: 06/08/19 06:32 06/08/19 12:47 Labs: Abnormal Lab Results - Last 24 Hours (Table) 06/08/19 06/08/19 06/08/19 Range/Units 06:32 06:32 06:32 Hgb 12.1 L (13.0-17.5) gm/dL Hct 37.0 L (39.0-53.0) % Glucose 116 H (74-99) mg/dL Plasma Lactic Acid Tai 2.9 H* (0.7-2.0) mmol/L Total Protein (6.3-8.2) g/dL Albumin (3.5-5.0) g/dL Ur Leukocyte Esterase (Negative) Amorphous Sediment (None) /hpf Hyaline Casts (0-2) /lpf Urine Mucus (None) /hpf U Marijuana (THC) Screen (NotDetected) 06/08/19 06/08/19 06/08/19 Range/Units 11:06 12:00 12:47 Hgb (13.0-17.5) gm/dL Hct (39.0-53.0) % Glucose 102 H (74-99) mg/dL Plasma Lactic Acid Tai 2.3 H* (0.7-2.0) mmol/L Total Protein 5.8 L (6.3-8.2) g/dL Albumin 3.4 L (3.5-5.0) g/dL Ur Leukocyte Esterase Trace H (Negative) Amorphous Sediment Rare H (None) /hpf Hyaline Casts 16 H (0-2) /lpf Urine Mucus Rare H (None) /hpf U Marijuana (THC) Screen Detected H (NotDetected) Thrombosis Risk Factor Assmnt - Choose All That Apply Any of the Below Risk Factors Present?: No Each Factor Represents 1 point: Medical pt on bed rest Other Risk Factors: No Other congenital or acquired thrombophilia - If yes, enter type in comment: No Thrombosis Risk Factor Assessment Total Risk Factor Score: 1 Thrombosis Risk Factor Assessment Level: Very Low Risk
[2019-06-08] MEDS: LACTATED RINGERS 1,000 ML IV SCH (17:41)
[2019-06-08] MEDS: ENOXAPARIN 40 MG/0.4 ML SYRINGE SQ SCH (17:42)
[2019-06-08] MEDS ORDERED: Potassium Replacement Protocol 1 EACH MISC MISCELLANE PRN (22:17)
[2019-06-08] MEDS ORDERED: Magnesium Replacement Protocol 1 EACH MISC MISCELLANE PRN (22:33)
[2019-06-08] MEDS ORDERED: POTASSIUM CHLORIDE ER 20 MEQ TAB.ER PO STA (22:44)
[2019-06-09 06:29] LABS: Prothrombin Time 10.8 sec (9.0-12.0)
[2019-06-09 06:39] LABS: Basophils # (A) 0.1 k/uL (0-0.2); Basophils % (A) 1 %; Eosinophils # (A) 0.2 k/uL (0-0.7); Eosinophils % (A) 3 %; HCT 37.8 % (39.0-53.0); HGB 12.3 gm/dL (13.0-17.5); Lymphocytes # (A) 1.8 k/uL (1.0-4.8); Lymphocytes % (A) 21 %; MCHC 32.5 g/dL (31.0-37.0); MCV 83.1 fL (80.0-100.0); Mean Platelet Volume 7.3; Monocytes # (A) 0.5 k/uL (0-1.0); Monocytes % (A) 6 %; Neutrophils # (A) 5.7 k/uL (1.3-7.7); Neutrophils % (A) 68 %; Platelet Count 260 k/uL (150-450); RBC 4.55 m/uL (4.30-5.90); RDW 14.9 % (11.5-15.5); WBC 8.4 k/uL (3.8-10.6)
[2019-06-09 06:51] LABS: ALT 31 U/L (21-72); AST 18 U/L (17-59); African American GFR (CKD) >90 (>60 ml/min/1.73 sqM); Albumin 3.7 g/dL (3.5-5.0); Alkaline Phosphatase 67 U/L (38-126); Anion Gap 9 mmol/L; Blood Urea Nitrogen 14 mg/dL (9-20); Calcium 9.1 mg/dL (8.4-10.2); Carbon Dioxide 27 mmol/L (22-30); Chloride 102 mmol/L (98-107); Glucose 109 mg/dL (74-99); Magnesium 1.9 mg/dL (1.6-2.3); Potassium 4.1 mmol/L (3.5-5.1); Sodium 138 mmol/L (137-145); Total Bilirubin 0.5 mg/dL (0.2-1.3); Total Protein 6.5 g/dL (6.3-8.2)
[2019-06-09] MEDS: LACTATED RINGERS 1,000 ML IV SCH ×3 (07:45→16:18)
[2019-06-09] MEDS: ENOXAPARIN 40 MG/0.4 ML SYRINGE SQ SCH (08:56)
--- NOTE | 2019-06-09 15:47 | P.CN ---
Psychiatric Consult - . 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 Patient allegedly as per ED note wrote suicide letters to family and took an unknown quantity of his psychiatric medications. Patient was seen at the bedside by life insurance underwriter for evaluation and was agreeable to speak. Patient described big stressor in his life being his relationship and from his fiance for the past 4-5 weeks now. He states that he is not handling it well and was recently discharged from [facility] for depression and suicidal ideations related to his relationship with his fiance. He states that he has been feeling depressed and has not been able to use his coping skills or support to help him through his separation. He states that he has been noncompliant with his medications for depression. He spoke of the overdose as "I took every pill I could find". He also stated that he scheduled text messages to go out to his friends and family after he took the pills claims that he smoked weed before talking to his fiance who he informed of what he did. His fiance called the acupressure therapist who checked on him and took him to the hospital. Patient states that he feels guilty about all of his manic endorses anxiety and depression. He claims to have made "bad choices" with regards to binge drinking with friends. patient admits to poor sleep. At this time patient denies any suicidal or homical ideations, intent or plan. Patient denies any auditory, visual hallucinations and denies any paranoia or delusions. PAST PSYCHIATRIC HISTORY: Patient states that his been diagnosed with depression and anxiety. He states his last admission was at [facility] and was discharged approximately 2 weeks ago. He claims that since then he was at a partial hospitalization program which she states did not help him. He also has been attempting to get into the outpatient psychiatric care at [facility] however claims that he has not had a "real appointment" yet. He admits to 2 previous suicide attempts PAST MEDICAL HISTORY: Obesity, hypertension. ALLERGIES: as per EMR. CHEMICAL DEPENDENCY HISTORY: He admits to binge drinking alcohol at times more than 3 beers when he does. He admits to smoking cigarettes daily. He admits to nightly cannabis use taking 2 hits of despite prior to sleep. 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 He states that he has 2 kids and currently lives with his fiance in a trailer. MENTAL STATUS EXAM: General Appearance: Patient is morbidly obese, appears to be stated age is alert, and cooperative. Patient has poor eye contact and marginal hygiene and grooming. Behavior: Patient is calmly lying in bed without any agitated behavior. Speech: Patient's speech is fluent and nonpressured. Soft tone Mood/Affect: Patient reports their mood is "pressed", affect is congruent and constricted Suicidality/Homicidality: Patient denies having any suicidal or homicidal ideation intent or plan. Perceptions: Patient denies any auditory or visual hallucinations. Though content/process: There is no evidence of any delusional thought content and thought process is linear and goal-directed. Guarded/evasive Memory and concentration: AOX3, grossly intact for the purposes of this session. Can spell "WORLD" backwards Judgment and insight: Poor, impulsive IMPRESSIONS: Major depressive disorder moderate-severe Alcohol use disorder Cannabis use disorder PLAN: -At this time patient does meet criteria for inpatient psychiatric admission. Patient has poor coping skills, is impulsive and has depressed mood/anxiety and his multiple stressors in his life. Patient also had a overdose/suicide attempt at home. -Would recommend the following medication changes/additions: Would hold off on medication changes at this time until patient is medically cleared. -Continue 1:1 sitter for safety -Cannot leave AMA at this time. Patient will need a petition and certification if attempting to leave AMA. [-When medically stable, patient is eligible for transfer to a psych bed when available. Patient must be transferred to another facility as patient is overweight to restriction for the [facility] unit. -Psychiatry will sign off at this point
[2019-06-09] MEDS: LISINOPRIL-HCTZ 20-12.5 MG 1 EACH TAB PO SCH (16:17)
[2019-06-09] MEDS: buPROPion SR 100 MG TABLET.ER PO SCH (16:17)
[2019-06-09] MEDS: SERTRALINE 100 MG TAB PO SCH ×2 (16:17→16:23)
[2019-06-09] MEDS: amLODIPine 5 MG TAB PO SCH (16:17)
--- NOTE | 2019-06-09 21:19 | P.PN ---
Progress Note - Text Progress Note Date: 06/09/19 Chief Complaint: Overdose interval history: This is a 39-year-old patient of Dr. thao. Patient lives with his finances 8 years and has 2 children aged 3 and 6 from her. 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 Patient was here on April 23 with intention to overdose. Patient was transferred from the ER to have an awake. Patient also an episode of suicide attempt about 12 years ago. Patient earlier thousand this morning decided to take an overdose.. He took multiple medications including Desyrel Wellbutrin Norvasc Zoloft Zestoretic he's not sure how many and granddaughter suicide note. This was around 2 AM. After it is S patient had textured girlf riend with intention to harm himself after approximately 1.4 hours after resumption. When the EMS arrived patient vomiting alcohol and bile. Patient is given oxygen at the site and some Zofran. Patient also smoked some marijuana. Patient also had drank alcohol. In the ER patient was somewhat drowsy. Poison control was contacted. Patient is given calcium gluconate. Glucagon and some Reglan. Started on high IV fluids. When I saw the patient earlier today patient somewhat awake able to answer questions watching television and has a sitter at the bedside. Patient still feeling rather low. Feels he has no hope. Psychiatry has been consulted. Patient on telemetry. Some QT prolongation. today-laying in bed. More cheerful today. Has a sitter. Did take a shower. Eating better. QT prolongation is corrected. Feeling better. Review of systems: Was done for constitutional, cardiovascular, GI, pulmonary. relevant finding as above Active Medications Amlodipine Besylate (Norvasc) 5 mg PO DAILY [facility] Last Admin: 06/09/19 16:17 Dose: 5 mg Documented by: Bupropion HCl (Wellbutrin Sr) 200 mg PO DAILY [facility] Last Admin: 06/09/19 16:17 Dose: 200 mg Documented by: Enoxaparin Sodium (Lovenox) 40 mg SQ DAILY [facility] Last Admin: 06/09/19 08:56 Dose: 40 mg Documented by: Lisinopril/HCTZ (Zestoretic 20-12.5) 1 each PO DAILY [facility] Last Admin: 06/09/19 16:17 Dose: 1 each Documented by: Lactated Ringer's (Lactated Ringers) 1,000 mls @ 125 mls/hr IV .Q8H [facility] Last Admin: 06/09/19 16:18 Dose: 125 mls/hr Documented by: Miscellaneous Information (Potassium Per Protocol) 1 each MISCELLANE DAILY PRN; Protocol PRN Reason: Per Protocol Miscellaneous Information (Magnesium Per Protocol) 1 each MISCELLANE DAILY PRN; Protocol PRN Reason: Per Protocol Naloxone HCl (Narcan) 0.2 mg IV Q2M PRN PRN Reason: Opioid Reversal Trazodone HCl (Desyrel) 100 mg PO [facility] Physical examination: VITAL SIGNS: 97.9, 89, 19, 1 33 x 63, 100% room air GENERAL: laying in bed, more cheerful today. EYES: Pupils equal. Conjunctiva normal. HEENT: External appearance of nose and ears normal, oral cavity grossly normal. NECK: JVD not raised; masses not palpable. HEART: First and second heart sounds are normal; no edema. LUNGS: Respiratory rate increased, distant breath sounds. ABDOMEN: Soft, nontender, liver spleen not palpable, no masses palpable. PSYCH: [Alert and oriented x3; mood and affect lbetter INVESTIGATIONS, reviewed in the clinical context: White count 8.4 hemoglobin 12.3 potassium 4.1 creatinine 0.70 glucose 109 QTc interval corrected Previous testing: White count 9.7 hemoglobin 12.1 platelets 322 potassium 3.9 creatinine 1.11 lactic acid 2.9 Salicylates less than 1, acetaminophen less than 10, serum alcohol 15 Assessment: -Suicide attempt with multiple medications exact dose unknown to include possibly Desyrel, Wellbutrin, Norvasc, Zestoretic as patient is not sure. -Prolonged QT interval, now corrected -Major depression -Morbid obesity BMI 61.0 -Chronic nicotine dependence patient cigarette smoker -Essential hypertension -Hypotension from antihypertensive overdose, improved - Plan: we called poison control and patient is done well. Telemetric admitted to schedule. Home medications were resumed. Patient was seen later this afternoon but Dr. Ayala is from psychiatry. Because of the weight restrictions patient have to be transferred out of the hospital.
[2019-06-09] MEDS: traZODone HCL 100 MG TAB PO SCH (23:13)
[2019-06-10] MEDS: LACTATED RINGERS 1,000 ML IV SCH
[2019-06-10] MEDS: amLODIPine 5 MG TAB PO SCH (06:19)
[2019-06-10] MEDS: LISINOPRIL-HCTZ 20-12.5 MG 1 EACH TAB PO SCH (06:19)
[2019-06-10] MEDS ORDERED: FUROSEMIDE 10 MG/ML 2 ML VIAL IV ONE (07:54)
[2019-06-10] MEDS: buPROPion SR 100 MG TABLET.ER PO SCH (08:16)
[2019-06-10] MEDS: ENOXAPARIN 40 MG/0.4 ML SYRINGE SQ SCH (08:16)
[2019-06-10] MEDS: traZODone HCL 100 MG TAB PO SCH (20:22)
--- NOTE | 2019-06-10 21:56 | P.PN ---
Progress Note - Text Progress Note Date: 06/10/19 Chief Complaint: Overdose interval history: This is a 39-year-old patient of Dr. thao. Patient lives with his finances 8 years and has 2 children aged 3 and 6 from her. 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 Patient was here on April 23 with intention to overdose. Patient was transferred from the ER to have an awake. Patient also an episode of suicide attempt about 12 years ago. Patient earlier thousand this morning decided to take an overdose.. He took multiple medications including Desyrel Wellbutrin Norvasc Zoloft Zestoretic he's not sure how many and granddaughter suicide note. This was around 2 AM. After it is S patient had textured girlf riend with intention to harm himself after approximately 1.4 hours after resumption. When the EMS arrived patient vomiting alcohol and bile. Patient is given oxygen at the site and some Zofran. Patient also smoked some marijuana. Patient also had drank alcohol. In the ER patient was somewhat drowsy. Poison control was contacted. Patient is given calcium gluconate. Glucagon and some Reglan. Started on high IV fluids. When I saw the patient earlier today patient somewhat awake able to answer questions watching television and has a sitter at the bedside. Patient still feeling rather low. Feels he has no hope. Psychiatry has been consulted. Patient on telemetry. Some QT prolongation. Cannot be accepted to [facility]. because of weight limitations. today-laying in bed. Feeling better. Has been out of bed. Awaiting transfer to outside psych unit. Review of systems: Was done for constitutional, cardiovascular, GI, pulmonary. relevant finding as above Active Medications Amlodipine Besylate (Norvasc) 5 mg PO DAILY [facility] Last Admin: 06/10/19 06:19 Dose: 5 mg Documented by: Bupropion HCl (Wellbutrin Sr) 200 mg PO DAILY [facility] Last Admin: 06/10/19 08:16 Dose: 200 mg Documented by: Enoxaparin Sodium (Lovenox) 40 mg SQ DAILY [facility] Last Admin: 06/10/19 08:16 Dose: 40 mg Documented by: Lisinopril/HCTZ (Zestoretic 20-12.5) 1 each PO DAILY [facility] Last Admin: 06/10/19 06:19 Dose: 1 each Documented by: Miscellaneous Information (Potassium Per Protocol) 1 each MISCELLANE DAILY PRN; Protocol PRN Reason: Per Protocol Miscellaneous Information (Magnesium Per Protocol) 1 each MISCELLANE DAILY PRN; Protocol PRN Reason: Per Protocol Naloxone HCl (Narcan) 0.2 mg IV Q2M PRN PRN Reason: Opioid Reversal Trazodone HCl (Desyrel) 100 mg PO HS [facility] Last Admin: 06/10/19 20:22 Dose: 100 mg Documented by: Physical examination: VITAL SIGNS: 97.8, 90, 18, 1 70 x 1 10 GENERAL: laying in bed, smiling EYES: Pupils equal. Conjunctiva normal. HEENT: External appearance of nose and ears normal, oral cavity grossly normal. NECK: JVD not raised; masses not palpable. HEART: First and second heart sounds are normal; no edema. LUNGS: Respiratory rate increased, distant breath sounds. ABDOMEN: Soft, nontender, liver spleen not palpable, no masses palpable. PSYCH: [Alert and oriented x3; mood and affect lbetter INVESTIGATIONS, reviewed in the clinical context: Labs from today White count 8.4 hemoglobin 12.3 potassium 4.1 creatinine 0.70 glucose 109 QTc interval corrected Previous testing: White count 9.7 hemoglobin 12.1 platelets 322 potassium 3.9 creatinine 1.11 lactic acid 2.9 Salicylates less than 1, acetaminophen less than 10, serum alcohol 15 Assessment: -Suicide attempt with multiple medications exact dose unknown to include possibly Desyrel, Wellbutrin, Norvasc, Zestoretic as patient is not sure. -Prolonged QT interval, now corrected -Major depression -Morbid obesity BMI 61.0 -Chronic nicotine dependence patient cigarette smoker -Essential hypertension -Hypotension from antihypertensive overdose, improved - Plan: Patient blood pressure to be running high from getting IV fluids. That was discontinued. One dose of Lasix 20 mg be given. Spoke to manager social media right. Awaiting outside facility to accept the patient. Encouraged patient ablate.
[2019-06-11] MEDS: buPROPion SR 100 MG TABLET.ER PO SCH (07:34)
[2019-06-11] MEDS: amLODIPine 5 MG TAB PO SCH (07:34)
[2019-06-11] MEDS: ENOXAPARIN 40 MG/0.4 ML SYRINGE SQ SCH (07:34)
[2019-06-11] MEDS: LISINOPRIL-HCTZ 20-12.5 MG 1 EACH TAB PO SCH (07:35)
--- NOTE | 2019-06-11 12:55 | P.DS ---
Providers Date of admission: 06/08/19 08:25 Expected date of discharge: 06/11/19 Attending physician: Jordon Guallpa Consults: 06/08/19 08:25 Consult Physician Urgent Consulting Provider: Rocco Ayala Consult Reason/Comments: overdose Do you want consulting provider notified?: Already Contacted Primary care physician: [facility] Hospital Course: Hospital course: This is a 39-year-old patient of Dr. thao. Patient lives with his finances 8 years and has 2 children aged 3 and 6 from her. 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 Patient was here on April 23 with intention to overdose. Patient was transferred from the ER to have an awake. Patient also an episode of suicide attempt about 12 years ago. Patient earlier thousand this morning decided to take an overdose.. He took multiple medications including Desyrel Wellbutrin Norvasc Zoloft Zestoretic he's not sure how many and granddaughter suicide note. This was around 2 AM. After it is S patient had textured girlfriend with intention to harm himself after approximately 1.4 hours after resumption. When the EMS arrived patient vomiting alcohol and bile. Patient is given oxygen at the site and some Zofran. Patient also smoked some marijuana. Patient also had drank alcohol. In the ER patient was somewhat drowsy. Poison control was contacted. Patient is given calcium gluconate. Glucagon and some Reglan. Started on high IV fluids. When I saw the patient earlier today patient somewhat awake able to answer questions watching television and has a sitter at the bedside. Patient still feeling rather low. Feels he has no hope. Psychiatry has been consulted. Patient on telemetry. Some QT prolongation. Cannot be accepted to [address]. because of weight limitations. Today-laying in bed. Starting a diet. Up to the bathroom. Has been feeling low. Ready for therapy. 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 Required for out of country transfer. This is being done Discussion and discharge planning more than 35 minutes Consultation: Dr. Ayala from psychiatry Physical examination: VITAL SIGNS: 97.8, 77, 16, 139/89, 92% room air GENERAL: Sitting up in a chair, comfortable EYES: Pupils equal. Conjunctiva normal. HEENT: External appearance of nose and ears normal, oral cavity grossly normal. NECK: JVD not raised; masses not palpable. HEART: First and second heart sounds are normal; no edema. LUNGS: Respiratory rate increased, distant breath sounds. ABDOMEN: Soft, nontender, liver spleen not palpable, no masses palpable. PSYCH: [Alert and oriented x3; mood and affect improving INVESTIGATIONS, reviewed in the clinical context: White count 8.4 hemoglobin 12.3 potassium 4.1 creatinine 0.70 glucose 109 QTc interval corrected Previous testing: White count 9.7 hemoglobin 12.1 platelets 322 potassium 3.9 creatinine 1.11 lactic acid 2.9 Salicylates less than 1, acetaminophen less than 10, serum alcohol 15 Discharge diagnosis: -Suicide attempt with multiple medications exact dose unknown to include possibly Desyrel, Wellbutrin, Norvasc, Zestoretic as patient is not sure. -Prolonged QT interval, now corrected -Major depression disorder-moderate to severe -Morbid obesity BMI 61.0 -Chronic nicotine dependence patient cigarette smoker -Essential hypertension -Hypotension from antihypertensive overdose, corrected - Disposition: Outside psychiatry facility Patient Condition at Discharge: Stable Plan - Discharge Summary Discharge Rx Participant: No New Discharge Prescriptions: Continue traZODone HCL [Desyrel] 100 mg PO HS hydrOXYzine HCL [Atarax] 10 mg PO TID buPROPion HCL [Wellbutrin SR] 200 mg PO DAILY amLODIPine [Norvasc] 5 mg PO DAILY Lisinopril-Hctz 20-12.5 mg [Zestoretic 20-12.5] 1 tab PO DAILY Discharge Medication List Lisinopril-Hctz 20-12.5 mg [Zestoretic 20-12.5] 1 tab PO DAILY 06/08/19 [History] amLODIPine [Norvasc] 5 mg PO DAILY 06/08/19 [History] buPROPion HCL [Wellbutrin SR] 200 mg PO DAILY 06/08/19 [History] hydrOXYzine HCL [Atarax] 10 mg PO TID 06/08/19 [History] traZODone HCL [Desyrel] 100 mg PO HS 06/08/19 [History] Follow up Appointment(s)/Referral(s): Rocco Thao DO [Primary Care Provider] - 1 Week Discharge Disposition: TRANSFER TO PSYCH HOSP/UNIT
[2019-06-11] MEDS ORDERED: ACETAMINOPHEN TAB 500 MG TAB PO PRN (13:06)
[2019-06-11 14:53] VITALS: BP 141/84; PULSE 95; RESP 18; TEMP 99.4
== END 2019-06-11 15:27 | DRG 918 ==
LOC: EC 05:37 → 3SCARD 08:25 → 4MS4W 06-10 15:13
PROVIDERS: ADMIT Hospitalist; ATTEND Hospitalist
DX: T43.212A Poisoning by selective serotonin and norepinephrine reuptake inhibitors, intentional self-harm, initial encounter (principal); Z68.44 Body mass index [BMI] 60.0-69.9, adult; T43.292A Poisoning by other antidepressants, intentional self-harm, initial encounter; T46.1X2A Poisoning by calcium-channel blockers, intentional self-harm, initial encounter; T46.4X2A Poisoning by angiotensin-converting-enzyme inhibitors, intentional self-harm, initial encounter; I95.2 Hypotension due to drugs; E66.01 Morbid (severe) obesity due to excess calories; F12.10 Cannabis abuse, uncomplicated; F10.10 Alcohol abuse, uncomplicated; F17.210 Nicotine dependence, cigarettes, uncomplicated; F32.9 Major depressive disorder, single episode, unspecified; I10 Essential (primary) hypertension; I45.81 Long QT syndrome; Z79.899 Other long term (current) drug therapy; Z91.5 Personal history of self-harm
CPT/HCPCS: 36415; 71045; 80053; 80306; 80320; 80329; 81001; 82075; 83520; 83605; 83735; 84484; 85025; 85610; 85730; 93005; 94760; 96361; 96365; 96375; 99291

== ENCOUNTER → 2019-08-21 | Outpatient (CLI) | payer BC ==
--- NOTE | 2019-08-21 12:29 | CONS ---
CONSULTATION DATE OF SERVICE: 08/21/2019 A 39-year-old gentleman has been evaluated in the [facility] for obstructive sleep or possible obstructive sleep apnea-hypopnea syndrome. HISTORY OF PRESENT ILLNESS/SLEEP-WAKE EVALUATION: Patient's usual sleep schedule on weekdays from around 1 am until 6:59 am and on weekends from about 3 am again up to 6:15 am. He gets up so early because he helps his children go to school. According to his girlfriend he snores, has episodes of stopped breathing during the sleep. He may wake up with episodes of panic attack and sweating. In the morning, he wakes up tired, has difficulties to pay attention, falling asleep during the day, has problems with memory, concentration, irritability, depression and anxiety. [place] Sleepiness Scale significantly increased to 11. PAST MEDICAL HISTORY: Positive for hypertension, panic attacks. MEDICATIONS: Lisinopril, Norvasc. SOCIAL HISTORY: Positive for smoking about 3, 4 cigarettes a day for 13 years. Alcohol consumption occasional. FAMILY HISTORY: Hypertension, heart problems, hyperlipidemia, asthma, bronchitis, snoring, cancer, headaches, diabetes. REVIEW OF SYSTEMS: Snoring, feeling tiredness and sleepiness during the day. Swelling of the legs. PHYSICAL EXAM: gentleman without distress, BP 185/104 on the right arm and 167/114 on the left arm, HR 80, RR 18, height 5, 11-3/4, weight 454.4 pounds, body mass index 62.0, temperature 98.8, oxygen saturation at room air 96%. OROPHARYNX: Low position of soft palate, Mallampati 3-4, restriction of nasal breathing and possibly nasal septum deviation. Wide neck 20 inches in circumference. LUNGS: Obese. EXTREMITIES: Swelling of the legs. IMPRESSION: 1. Snoring, witnessed episodes of stopped breathing during sleep, low position of soft palate, wide neck, sleepiness, obstructive sleep apnea-hypopnea syndrome. 2. Restriction of nasal breathing; possibly nasal septum deviation. 3. Morbid obesity, body mass index 62.0. 4. Hypertension, not on good control with two medications. 5. History of panic attacks. PLAN: 1. Polysomnography for evaluation of patient's breathing during sleep. 2. CPAP/BiPAP titration if sleep study confirms obstructive sleep apnea-hypopnea syndrome. 3. Preferable position during sleep on the side. 4. No driving if patient feels any sleepiness. 5. I will see patient for follow up visit to explain results of testing and following plan. Thank you very much for referring this patient for consultation. Sincerely, Lucas Andrade MD, PhD, FAASM Diplomat of [place] [employer] [place] [employer] [facility] [place] MMODL / TIMIN: [id number] /
== END ==
LOC: SLEEP 10:33
PROVIDERS: ATTEND Internal Medicine
DX: G47.33 Obstructive sleep apnea (adult) (pediatric) (principal); E66.01 Morbid (severe) obesity due to excess calories; I10 Essential (primary) hypertension; F41.0 Panic disorder [episodic paroxysmal anxiety]; F17.210 Nicotine dependence, cigarettes, uncomplicated; Z68.44 Body mass index [BMI] 60.0-69.9, adult; Z79.899 Other long term (current) drug therapy
CPT/HCPCS: 99211

== ENCOUNTER 2020-06-19 09:16 | Emergency (ER) | payer BC ==
[2020-06-19 09:25] VITALS: TEMP 97.9
[2020-06-19] MEDS ORDERED: SODIUM CHLORIDE 0.9% 1,000 ML IV STA ×2 (09:47→12:09)
[2020-06-19] MEDS ORDERED: KETOROLAC 15 MG/ML 1 ML VIAL IVP STA (09:47)
[2020-06-19] MEDS ORDERED: ONDANSETRON 4 MG/2 ML VIAL IVP STA (09:47)
[2020-06-19 09:56] LABS: Basophils # (A) 0.1 k/uL (0-0.2); Basophils % (A) 1 %; Eosinophils # (A) 0.3 k/uL (0-0.7); Eosinophils % (A) 3 %; HCT 44.4 % (39.0-53.0); HGB 14.2 gm/dL (13.0-17.5); Lymphocytes % (A) 19 %; MCH 27.1 pg (25.0-35.0); MCV 84.6 fL (80.0-100.0); Mean Platelet Volume 7.3; Monocytes # (A) 0.5 k/uL (0-1.0); Monocytes % (A) 5 %; Neutrophils # (A) 7.5 k/uL (1.3-7.7); Neutrophils % (A) 71 %; Platelet Count 297 k/uL (150-450); RBC 5.25 m/uL (4.30-5.90); RDW 14.3 % (11.5-15.5); WBC 10.5 k/uL (3.8-10.6)
[2020-06-19 10:06] LABS: ALT 23 U/L (4-49); AST 25 U/L (17-59); African American GFR (CKD) >90 (>60 ml/min/1.73 sqM); Albumin 4.3 g/dL (3.5-5.0); Alkaline Phosphatase 85 U/L (38-126); Amylase 35 U/L (30-110); Anion Gap 9 mmol/L; Blood Urea Nitrogen 15 mg/dL (9-20); Calcium 9.1 mg/dL (8.4-10.2); Carbon Dioxide 26 mmol/L (22-30); Chloride 104 mmol/L (98-107); Glucose 151 mg/dL (74-99); Non-African American GFR(CKD) >90 (>60 ml/min/1.73 sqM); Potassium 4.2 mmol/L (3.5-5.1); Sodium 139 mmol/L (137-145); Total Bilirubin 0.5 mg/dL (0.2-1.3); Total Protein 6.9 g/dL (6.3-8.2)
--- NOTE | 2020-06-19 10:07 | ED ---
General Adult HPI - General Chief complaint: Abdominal Pain Stated complaint: ABD PAIN Time Seen by Provider: 06/19/20 09:29 Source: patient, RN notes reviewed Mode of arrival: ambulatory Limitations: no limitations - History of Present Illness Initial comments: 40-year-old male with a past medical history of hypertension presents to the emergency department for chief complaint of abdominal pain. Patient reports his mid abdominal pain that has been ongoing since this morning. States he has had this pain before a few years ago and was discharged home from the ER. Patient does have some nausea, denies vomiting. Denies diarrhea. Denies fevers or chills. Denies radiating pain. He denies any history of abdominal surgeries. Patient has no other complaints at this time including shortness of breath, chest pain, vomiting, headache, or visual changes. - Related Data Home Medications Medication Instructions Recorded Confirmed Lisinopril-Hctz 20-12.5 mg 1 tab PO DAILY 06/08/19 06/08/19 [Zestoretic 20-12.5] amLODIPine [Norvasc] 5 mg PO DAILY 06/08/19 06/08/19 buPROPion HCL [Wellbutrin SR] 200 mg PO DAILY 06/08/19 06/08/19 hydrOXYzine HCL [Atarax] 10 mg PO TID 06/08/19 06/08/19 traZODone HCL [Desyrel] 100 mg PO HS 06/08/19 06/08/19 Allergies Allergy/AdvReac Type Severity Reaction Status Date / Time No Known Allergies Allergy Verified 06/19/20 09:24 Review of Systems ROS Statement: Those systems with pertinent positive or pertinent negative responses have been documented in the HPI. ROS Other: All systems not noted in ROS Statement are negative. Past Medical History Past Medical History: Hypertension Additional Past Medical History / Comment(s): obesity History of Any Multi-Drug Resistant Organisms: None Reported Past Surgical History: No Surgical Hx Reported Past Psychological History: Depression Smoking Status: Current every day smoker Past Alcohol Use History: Rare Past Drug Use History: Marijuana General Exam Limitations: no limitations General appearance: alert, in no apparent distress Head exam: Present: atraumatic, normocephalic, normal inspection Eye exam: Present: normal appearance, PERRL, EOMI. Absent: scleral icterus, conjunctival injection, periorbital swelling ENT exam: Present: normal exam, mucous membranes moist Neck exam: Present: normal inspection, full ROM. Absent: tenderness, meningismus, lymphadenopathy Respiratory exam: Present: normal lung sounds bilaterally. Absent: respiratory distress, wheezes, rales, rhonchi, stridor Cardiovascular Exam: Present: regular rate, normal rhythm, normal heart sounds. Absent: systolic murmur, diastolic murmur, rubs, gallop, clicks GI/Abdominal exam: Present: soft, tenderness (mid abdominal tenderness), normal bowel sounds. Absent: distended, guarding, rebound, rigid Course Vital Signs 06/19/20 06/19/20 06/19/20 09:23 10:05 10:56 Temperature 97.9 F Pulse Rate 87 89 69 Respiratory 18 24 16 Rate Blood Pressure 195/100 190/97 182/95 O2 Sat by Pulse 99 98 97 Oximetry EKG Findings - EKG Comments: EKG Findings:: Normal sinus rhythm, ventricular rate 84, MS interval 142, QTc 503 Medical Decision Making - Medical Decision Making Vitals are stable. Physical exam is unremarkable but does reveal mild mid abdominal tenderness. CBC unremarkable. CMP unremarkable. Lactic acid is 2.6.CT abdomen and pelvis shows anterior duodenal wall hernia containing small segment of bowel loop. No evidence of obstruction. Mild induration of action be associated with fatty inflammation related to the hernia sac and should be correlated clinically. Patient was given Dilaudid and hernia was reduced with direct pressure by myself. He immediately felt much better. Dr. Ortiz did speak with Dr. Forbes about this. She recommends another liter of fluids and then discharge home. Recommends he return if he has any worsening symptoms and to follow-up with her outpatient. I did discuss no lifting heavy objects and to guard the area. He is aware to return if this pain occurs again. - Lab Data Result diagrams: 06/19/20 09:48 06/19/20 09:48 Lab Results 06/19/20 06/19/20 06/19/20 Range/Units 09:48 09:48 09:48 WBC 10.5 (3.8-10.6) k/uL RBC 5.25 (4.30-5.90) m/uL Hgb 14.2 (13.0-17.5) gm/dL Hct 44.4 (39.0-53.0) % MCV 84.6 (80.0-100.0) fL MCH 27.1 (25.0-35.0) pg MCHC 32.0 (31.0-37.0) g/dL RDW 14.3 (11.5-15.5) % Plt Count 297 (150-450) k/uL Neutrophils % 71 % Lymphocytes % 19 % Monocytes % 5 % Eosinophils % 3 % Basophils % 1 % Neutrophils # 7.5 (1.3-7.7) k/uL Lymphocytes # 2.0 (1.0-4.8) k/uL Monocytes # 0.5 (0-1.0) k/uL Eosinophils # 0.3 (0-0.7) k/uL Basophils # 0.1 (0-0.2) k/uL Sodium 139 (137-145) mmol/L Potassium 4.2 (3.5-5.1) mmol/L Chloride 104 (98-107) mmol/L Carbon Dioxide 26 (22-30) mmol/L Anion Gap 9 mmol/L BUN 15 (9-20) mg/dL Creatinine 0.71 (0.66-1.25) mg/dL Est GFR (CKD-EPI)AfAm >90 (>60 ml/min/1.73 sqM) Est GFR (CKD-EPI)NonAf >90 (>60 ml/min/1.73 sqM) Glucose 151 H (74-99) mg/dL Lactic Ac Sepsis Rflx Plasma Lactic Acid Tai 2.6 H* (0.7-2.0) mmol/L Calcium 9.1 (8.4-10.2) mg/dL Magnesium (1.6-2.3) mg/dL Total Bilirubin 0.5 (0.2-1.3) mg/dL AST 25 (17-59) U/L ALT 23 (4-49) U/L Alkaline Phosphatase 85 (38-126) U/L Total Protein 6.9 (6.3-8.2) g/dL Albumin 4.3 (3.5-5.0) g/dL Amylase 35 (30-110) U/L Lipase 59 (23-300) U/L 06/19/20 06/19/20 Range/Units 09:48 10:09 WBC (3.8-10.6) k/uL RBC (4.30-5.90) m/uL Hgb (13.0-17.5) gm/dL Hct (39.0-53.0) % MCV (80.0-100.0) fL MCH (25.0-35.0) pg MCHC (31.0-37.0) g/dL RDW (11.5-15.5) % Plt Count (150-450) k/uL Neutrophils % % Lymphocytes % % Monocytes % % Eosinophils % % Basophils % % Neutrophils # (1.3-7.7) k/uL Lymphocytes # (1.0-4.8) k/uL Monocytes # (0-1.0) k/uL Eosinophils # (0-0.7) k/uL Basophils # (0-0.2) k/uL Sodium (137-145) mmol/L Potassium (3.5-5.1) mmol/L Chloride (98-107) mmol/L Carbon Dioxide (22-30) mmol/L Anion Gap mmol/L BUN (9-20) mg/dL Creatinine (0.66-1.25) mg/dL Est GFR (CKD-EPI)AfAm (>60 ml/min/1.73 sqM) Est GFR (CKD-EPI)NonAf (>60 ml/min/1.73 sqM) Glucose (74-99) mg/dL Lactic Ac Sepsis Rflx Y Plasma Lactic Acid Tai (0.7-2.0) mmol/L Calcium (8.4-10.2) mg/dL Magnesium 1.9 (1.6-2.3) mg/dL Total Bilirubin (0.2-1.3) mg/dL AST (17-59) U/L ALT (4-49) U/L Alkaline Phosphatase (38-126) U/L Total Protein (6.3-8.2) g/dL Albumin (3.5-5.0) g/dL Amylase (30-110) U/L Lipase (23-300) U/L Disposition Clinical Impression: Hernia Disposition: HOME SELF-CARE Condition: Good Instructions (If sedation given, give patient instructions): Abdominal Pain (ED), Ventral Hernia (ED) Additional Instructions: Please do not lift any heavy objects. Please follow-up with surgery outpatient by calling for an appointment. Please return here if you have any worsening symptoms or if this pain recurs. Is patient prescribed a controlled substance at d/c from ED?: No Referrals: Rocco Rodrigez DO [Primary Care Provider] - 1-2 days Stella Castillo MD [STAFF PHYSICIAN] - 1-2 days Time of Disposition: 12:17
--- NOTE | 2020-06-19 10:51 | CT ---
EXAMINATION TYPE: CT abdomen pelvis w con DATE OF EXAM: 06/19/2020 COMPARISON: 11/03/2018 HISTORY: Severe abdominal pain CT DLP: 5329.9 mGycm Automated exposure control for dose reduction was used. CONTRAST: CT scan of the abdomen pelvis is performed with IV Contrast, patient injected with 100 mL of Isovue 3 00. FINDINGS- LUNG BASES- No significant abnormality is appreciated. LIVER/GB- No gross abnormality is appreciated. PANCREAS- No gross abnormality is seen. SPLEEN- No gross abnormality is seen. ADRENALS- No gross abnormality is seen. KIDNEYS/BLADDER- no hydronephrosis nephrolithiasis or renal mass. BOWEL-bowel gas pattern nonspecific. Appendix normal. Changes of diverticulosis noted.. LYMPH NODES- No greater than 1cm abdominal or pelvic lymph nodes areappreciated. OSSEOUS STRUCTURES- No significant abnormality is seen. OTHER- there is an anterior abdominal wall hernia containing bowel. Subcutaneous edema can be associ ated with mild anasarca. Correlate clinically. IMPRESSION- 1. There is a anterior abdominal wall hernia. It contains a small segment of bowel loops. No evidence of obstruction. Mild induration of fat can be associated with fatty inflammation related to the evelio ia sac and should be correlated clinically.
[2020-06-19] MEDS ORDERED: HYDROmorphone 0.5 MG/0.5 ML SYRINGE IVP STA (10:57)
[2020-06-19 13:08] VITALS: BP 145/83; PULSE 76; RESP 18
== END 2020-06-19 13:08 | disposition home or self-care (01) ==
LOC: EC 09:16
DX: K43.9 Ventral hernia without obstruction or gangrene (principal); R94.31 Abnormal electrocardiogram [ECG] [EKG]; I10 Essential (primary) hypertension; F32.9 Major depressive disorder, single episode, unspecified; F17.200 Nicotine dependence, unspecified, uncomplicated; Z79.899 Other long term (current) drug therapy
CPT/HCPCS: 93005; 80053; 82150; 83605; 83690; 83735; 85025; 74177; 99284; 96374; 96375; 96361 ×2; J1885; J1170; Q9967

== ENCOUNTER 2020-11-26 09:54 | Day surgery (SDC) | payer BC ==
[2020-11-22 11:04] VITALS: BMI 59.1
--- NOTE | 2020-11-26 08:55 | P.GSHP ---
History of Present Illness H&P Date: 11/26/20 CHIEF COMPLAINT: Ventral hernia HISTORY OF PRESENT ILLNESS: The patient is a 40-year-old male who presents with a history of swelling and pain along the abdomen from a hernia for over 1 year. He reports no redness along the skin. His symptoms are worse with lifting. Now he presents for surgical intervention. PAST MEDICAL HISTORY: Please see list and reviewed PAST SURGICAL HISTORY: Please see list and reviewed MEDICATIONS: Please see list and reviewed ALLERGIES: Please see list and reviewed SOCIAL HISTORY: Please see list and reviewed FAMILY HISTORY: Please see list and reviewed REVIEW OF ORGAN SYSTEMS: CONSTITUTIONAL: No fevers or chills. No recent weight loss. He is over 200+ pounds over weight. BMI over 60. EYES: Denies any trouble with vision. No glasses. HEENT: No difficulties with hearing. No nosebleeds. No difficulty swallowing. RESPIRATORY: Denies pneumonia. Has chronic obstructive lung disease. CARDIOVASCULAR: Has congestive heart failure. Has hypertensive heart disease. Has cardiomyopathy. GASTROINTESTINAL: Denies fatty food intolerance. Denies change in bowel habits and gas bloat. GENITOURINARY: Denies any blood in urine or increased urinary frequency. NEUROLOGICAL: Denies any numbness or tingling along the distal extremities. No seizure disorders or headaches. MUSCULOSKELETAL: Denies any back pain, stiffness or joint arthritis. SKIN: No current skin cancer. No rash. PSYCHIATRIC: Has depression. No suicidal thoughts. ENDOCRINE: Denies current thyroid disorders. Denies any blood sugar glucose intolerance. HEME/LYMPHATIC: Denies any lumps and bumps around the neck. No recent deep venous thrombosis. ALLERGY/IMMUNOLOGY: No immunoglobulin therapy. No immune deficiencies. BREAST: Denies current breast lumps, pain or nipple discharge. PHYSICAL EXAM: VITAL SIGNS: Stable GENERAL: Well-developed pleasant male in no acute distress. HEENT: No scleral icterus. Extraocular movements grossly intact. Moist buccal mucosa. NECK: Supple without lymphadenopathy. CHEST: Unlabored respirations. Equal bilateral excursions. CARDIOVASCULAR: Regular rate and rhythm. Distal 2+ pulses. ABDOMEN: Soft, nondistended. Palpable defect of the abdomen. No peritoneal signs. MUSCULOSKELETAL: No clubbing, cyanosis, or edema. ASSESSMENT: 1. Incarcerated umbilical ventral hernia. 2. BMI over 61 with morbid obesity. PLAN: 1. Recommend proceeding with robotic ventral hernia repair with mesh. 2. Benefits and risks of surgical intervention was discussed including possibility of open technique. 3. DVT prophylaxis. 4. Antibiotic prophylaxis. 5. Nonnarcotic pain management reviewed. 6. He is elevated risk due to BMI over 40 Past Medical History Past Medical History: Hypertension Additional Past Medical History / Comment(s): obesity History of Any Multi-Drug Resistant Organisms: None Reported Past Surgical History: No Surgical Hx Reported Past Anesthesia/Blood Transfusion Reactions: No Reported Reaction Additional Past Anesthesia/Blood Transfusion Reaction / Comment(s): has never had anesthesia Smoking Status: Former smoker - Past Family History Mother Family Medical History: No Reported History Medications and Allergies Home Medications Medication Instructions Recorded Confirmed Type Lisinopril-Hctz 20-12.5 mg 1 tab PO DAILY 06/08/19 11/22/20 History [Zestoretic 20-12.5] amLODIPine [Norvasc] 5 mg PO DAILY 06/08/19 11/22/20 History buPROPion HCL [Wellbutrin SR] 150 mg PO DAILY 06/08/19 11/22/20 History hydrOXYzine HCL [Atarax] 10 mg PO TID PRN 06/08/19 11/22/20 History traZODone HCL [Desyrel] 100 mg PO HS PRN 06/08/19 11/22/20 History Carvedilol [Coreg] 12.5 mg PO BID 11/22/20 11/22/20 History Multivitamins, Thera [Multivitamin 1 tab PO DAILY 11/22/20 11/22/20 History (formulary)] Allergies Allergy/AdvReac Type Severity Reaction Status Date / Time No Known Allergies Allergy Verified 11/22/20 10:40
[~2020-11-26 09:54] MED LIST: ACETAMINOPHEN TAB 500 MG TAB PO PRN; GABAPENTIN 300 MG CAP PO PRN; HEPARIN SODIUM,PORCINE 5,000 UNIT/ML 1 ML VIAL SQ PRN; MELOXICAM 7.5 MG TAB PO PRN; TAMSULOSIN 0.4 MG CAP.ER.24H PO PRN; ceFAZolin 3 GM in SODIUM CHLORIDE 0.9% 100 ML IVPB PRN
[2020-11-26] MEDS ORDERED: ONDANSETRON 4 MG/2 ML VIAL ONE (10:40)
[2020-11-26] MEDS ORDERED: LACTATED RINGERS 1,000 ML IV ONE ×2 (10:52→14:52)
[2020-11-26] MEDS ORDERED: DEXAMETHASONE SOD PHOSPHATE 4 MG/ML 1 ML VIAL IV ONE (10:53)
[2020-11-26] MEDS ORDERED: MIDAZOLAM 2 MG/2 ML VIAL IV ONE ×2 (10:55)
[2020-11-26] MEDS ORDERED: fentaNYL (PF) 50 MCG/ML 2 ML AMP IV ONE (10:56)
[2020-11-26 11:34] LABS: Basophils % (A) 0 %; Eosinophils # (A) 0.2 k/uL (0-0.7); Eosinophils % (A) 3 %; HCT 39.7 % (39.0-53.0); HGB 12.9 gm/dL (13.0-17.5); Lymphocytes # (A) 1.3 k/uL (1.0-4.8); Lymphocytes % (A) 18 %; MCH 26.3 pg (25.0-35.0); MCHC 32.4 g/dL (31.0-37.0); MCV 81.2 fL (80.0-100.0); Mean Platelet Volume 7.3; Monocytes # (A) 0.4 k/uL (0-1.0); Monocytes % (A) 5 %; Neutrophils # (A) 5.4 k/uL (1.3-7.7); Neutrophils % (A) 73 %; Platelet Count 276 k/uL (150-450); RBC 4.88 m/uL (4.30-5.90); RDW 14.3 % (11.5-15.5); WBC 7.4 k/uL (3.8-10.6)
[2020-11-26 11:39] LABS: ALT 36 U/L (4-49); AST 27 U/L (17-59); African American GFR (CKD) >90 (>60 ml/min/1.73 sqM); Albumin 4.1 g/dL (3.5-5.0); Alkaline Phosphatase 80 U/L (38-126); Anion Gap 8 mmol/L; Blood Urea Nitrogen 19 mg/dL (9-20); Calcium 9.4 mg/dL (8.4-10.2); Carbon Dioxide 27 mmol/L (22-30); Chloride 103 mmol/L (98-107); Glucose 123 mg/dL (74-99); Non-African American GFR(CKD) >90 (>60 ml/min/1.73 sqM); Potassium 4.3 mmol/L (3.5-5.1); Sodium 138 mmol/L (137-145); Total Bilirubin 0.5 mg/dL (0.2-1.3); Total Protein 6.8 g/dL (6.3-8.2)
[2020-11-26] MEDS ORDERED: PHENYLEPHRINE-0.9% NACL SYG 1,000 MCG/10 ML SYRINGE ONE (12:40)
[2020-11-26] MEDS ORDERED: SUCCINYLCHOLINE CHLORIDE VIAL 200 MG/10 ML VIAL IV ONE (12:40)
[2020-11-26] MEDS ORDERED: KETAMINE 10 MG/ML 20 ML VIAL ONE (12:40)
[2020-11-26] MEDS ORDERED: PROPOFOL 10 MG/ML 20 ML VIAL IV ONE (12:40)
[2020-11-26] MEDS ORDERED: fentaNYL (PF) 50 MCG/ML 2 ML AMP ONE (12:40)
[2020-11-26] MEDS ORDERED: MIDAZOLAM 2 MG/2 ML VIAL ONE (12:40)
[2020-11-26] MEDS ORDERED: NEOSTIGMINE 1 MG/ML 10 ML VIAL ONE (12:40)
[2020-11-26] MEDS ORDERED: LIDOCAINE 1% INJ 10MG/ML (20 ML MDV) ONE (12:40)
[2020-11-26] MEDS ORDERED: ROCURONIUM 10 MG/ML (5 ML VIAL) IV ONE (12:40)
[2020-11-26] MEDS ORDERED: GLYCOPYRROLATE 0.2 MG/ML 2 ML VIAL ONE (12:40)
[2020-11-26] MEDS ORDERED: BUPIVACAIN-EPI 0.5%-1:200,000 30 ML VIAL SQ ONE (12:45)
[2020-11-26] MEDS ORDERED: TAMSULOSIN 0.4 MG CAP.ER.24H PO PRN (14:14)
--- NOTE | 2020-11-26 14:21 | P.OP ---
Date of Procedure: 11/26/20 Description of Procedure: SURGEON: STELLA CASTILLO MD PREOPERATIVE DIAGNOSES: 1. Initial incarcerated umbilical hernia 2. Morbid obesity due to excess calories, BMI 57.5 3. Obstructive sleep apnea 4. Hypertensive heart disease 5. Depressive disorder POSTOPERATIVE DIAGNOSES: 1. Initial incarcerated umbilical hernia, 3-cm 2. Morbid obesity due to excess calories, BMI 57.5 3. Obstructive sleep apnea 4. Hypertensive heart disease 5. Depressive disorder OPERATION: 1. Robotic-assisted da Michelle Xi laparoscopic repair of initial incarcerated umbilical hernia with mesh, ventralight ST mesh 11.4 cm Anesthesia: GETA, regional, local Estimated Blood Loss (ml): 5 Pathology: None. COMPLICATIONS: None. Operative Findings: 1. Umbilical hernia defect 3 cm incarcerated with greater omentum 3. Fascia repaired using #1 V-lock suture INDICATIONS: The patient is a 40-year-old male who presents with a personal history of incarcerated umbilical hernia. Surgical intervention with laparoscopic versus robotic and open techniques were reviewed. Placement of mesh was also reviewed. Benefits and risks were thoroughly described. Informed consent was obtained. DESCRIPTION OF PROCEDURE: The patient was brought into the operating room and laid in supine position. After general induction, the abdomen had been prepped and draped in standard sterile fashion. Ioban draping was also placed. Prior to incision, a timeout protocol was confirmed with surgical team regarding the patient's name including procedures to be performed. The robot was primed prior to the procedure. A field block using local anesthetic was placed along hernia site including the proposed port sites. Initial incision was made with an #11 blade along the left upper quadrant. A 0 degree 5 mm laparoscopic trocar entry was performed and insufflated. Three 8 mm ports were placed along the left lateral abdominal wall under direct localization after exchanging the 5-mm for an 8 mm port. Placements of the ports were 15 cm from the target anatomy and 10 cm apart. An accessory 12 mm port was placed at the right upper quadrant for exchange of mesh including sutures. The [employer] Xi robot was previously primed, prepped and draped then docked from the right side of the patient onto the left side of the patient. I then sat at the robot Zandoi Xi console where working arms of the robot including Bovie cautery connected to robotic scissors, needle train driver, and graspers placed by the salon shampoo assistant. Incarcerated omental contents were found along the upper midline defect including umbilicus. The defects were reduced of incarcerated greater omentum. Fascial defect of the umbilical hernia defect is 3 cm. The incarcerated contents were reduced as the peritoneal fat was cleaned from the abdominal wall. Next, hemostasis was checked with cautery. The hernia defects were oversewn using #1 nonabsorbable V-lock suture for each defect separately with fascial imbrication x 2. Next, ventralight ST mesh 11.4 cm was placed with the rough side towards the abdominal wall as to cover the epigastric including umbilical defect. 2-0 VLOC 9 inch sutures were used to fixate the mesh. A final endoscopic imaging was obtained. All instruments and pneumoperitoneum were evacuated from the abdominal cavity. The da Michelle Xi robot was undocked from the patient. I re-scrubbed into the case for closure of incisions. The fascia of the 12-mm port was probed and less than 8-mm in size. The in cisions were reapproximated using 4-0 Monocryl in an interrupted subcuticular fashion. Liquid glue was applied to the skin after cleansing the skin with normal saline and dilute hydrogen peroxide. An abdominal binder was placed. An umbilical dressing was placed prior. At the end of the procedure, needle, sponge, and instrument count had been verified correct by surgical device sales representative. The patient was taken to the postanesthesia care unit in stable condition. Plan - Discharge Summary Discharge Rx Participant: No New Discharge Prescriptions: New Ibuprofen [Motrin] 600 mg PO Q8HR PRN #30 tab PRN Reason: Pain Acetaminophen Tab [Tylenol Tab] 1,000 mg PO Q6HR PRN #30 tablet PRN Reason: Pain Simethicone [Gas-X] 125 mg PO AC-TID PRN #20 capsule PRN Reason: Pain Continue traZODone HCL [Desyrel] 100 mg PO HS PRN PRN Reason: Insomnia hydrOXYzine HCL [Atarax] 10 mg PO TID PRN PRN Reason: Anxiety buPROPion HCL [Wellbutrin SR] 150 mg PO DAILY amLODIPine [Norvasc] 5 mg PO DAILY Lisinopril-Hctz 20-12.5 mg [Zestoretic 20-12.5] 1 tab PO DAILY Multivitamins, Thera [Multivitamin (formulary)] 1 tab PO DAILY Carvedilol [Coreg] 12.5 mg PO BID Discharge Medication List Lisinopril-Hctz 20-12.5 mg [Zestoretic 20-12.5] 1 tab PO DAILY 06/08/19 [History] amLODIPine [Norvasc] 5 mg PO DAILY 06/08/19 [History] buPROPion HCL [Wellbutrin SR] 150 mg PO DAILY 06/08/19 [History] hydrOXYzine HCL [Atarax] 10 mg PO TID PRN 06/08/19 [History] traZODone HCL [Desyrel] 100 mg PO HS PRN 06/08/19 [History] Carvedilol [Coreg] 12.5 mg PO BID 11/22/20 [History] Multivitamins, Thera [Multivitamin (formulary)] 1 tab PO DAILY 11/22/20 [History] Acetaminophen Tab [Tylenol Tab] 1,000 mg PO Q6HR PRN #30 tablet 11/26/20 [Rx] Ibuprofen [Motrin] 600 mg PO Q8HR PRN #30 tab 11/26/20 [Rx] Simethicone [Gas-X] 125 mg PO AC-TID PRN #20 capsule 11/26/20 [Rx] Follow up Appointment(s)/Referral(s): Stella Castillo MD [STAFF PHYSICIAN] - 11/30/20 Patient Instructions/Handouts: Ventral Hernia Repair (GEN), Laparoscopic Herniorrhaphy (DC) Activity/Diet/Wound Care/Special Instructions: DO NOT REMOVE UMBILICAL DRESSING. Using antibacterial soap. No lifting over 4 pounds 4 weeks, December 27January shower. No bathtub soaks for 2 weeks, December 10. Wear abdominal binder daily for comfort except for showering. Use ice along incisions for today to prevent swelling. Use Tylenol and ibuprofen or Aleve scheduled for the next 24-48 hours for best pain relief. Discharge Disposition: HOME SELF-CARE
[2020-11-26] MEDS: HYDROmorphone 0.5 MG/0.5 ML SYRINGE IVP ONE ×2 (14:22→14:47)
[2020-11-26 14:30] VITALS: TEMP 97.9
[2020-11-26 15:40] VITALS: RESP 16
[2020-11-26] MEDS ORDERED: ACETAMINOPHEN TAB 500 MG TAB ONE (16:18)
[2020-11-26] MEDS ORDERED: ACETAMINOPHEN TAB 500 MG TAB PO ONE (16:18)
[2020-11-26 18:21] VITALS: BP 131/75; PULSE 99
--- NOTE | 2020-11-26 21:59 | P.ANPRN ---
Procedure Note - Anesthesia - Nerve Block Performed Bilateral Rectus Abdominis Single Time Out Performed: Yes Date of Procedure: 11/26/20 Procedure Start Time: 11:10 Procedure Stop Time: :23 Location of Patient: PreOp Indication: Acute Post-Operative Pain, Dx/Pain Location, Requested by Surgeon Specifically requested for management of pain by : Stella Castillo Sedation Type: Sedate with meaningful contact maintained Preparation: Sterile Prep Position: Supine Catheter: None Needle Types: Facet Needle Gauge: 21 Ultrasound used to visualize needle placement: Yes Ultrasound used to observe medication spread: Yes Injectate: 0.5% Ropivacaine (see comment for volume) Blood Aspirated: No Pain Paresthesia on Injection Noted: No Resistance on Injection: Normal Image Stored and Saved: Yes Events: Uneventful and Well Tolerated (20cc local anesthetic used with 20 cc normal saline)
== END 2020-11-26 18:35 | disposition home or self-care (01) ==
LOC: OR 09:54
PROVIDERS: ATTEND Surgery Plastic and Reconstructive Surgery
DX: K42.0 Umbilical hernia with obstruction, without gangrene (principal); E66.01 Morbid (severe) obesity due to excess calories; G47.33 Obstructive sleep apnea (adult) (pediatric); I11.0 Hypertensive heart disease with heart failure; I50.9 Heart failure, unspecified; I42.9 Cardiomyopathy, unspecified; F32.9 Major depressive disorder, single episode, unspecified; Z68.43 Body mass index [BMI] 50.0-59.9, adult; Z87.891 Personal history of nicotine dependence; Z79.899 Other long term (current) drug therapy
CPT/HCPCS: 49653; S2900; 64488; 64999; 76942; 80053; 85025

== ENCOUNTER 2020-12-27 07:00 | Day surgery (SDC) | payer BC ==
[2020-12-24 08:32] VITALS: BMI 59.7
[~2020-12-27 07:00] MED LIST changes: -ACETAMINOPHEN TAB 500 MG TAB PO PRN; -GABAPENTIN 300 MG CAP PO PRN; -HEPARIN SODIUM,PORCINE 5,000 UNIT/ML 1 ML VIAL SQ PRN; +LACTATED RINGERS 1,000 ML IV SCH; +LIDOCAINE 1% (10MG/ML) FOR IV START INTRADERMA PRN; -MELOXICAM 7.5 MG TAB PO PRN; -TAMSULOSIN 0.4 MG CAP.ER.24H PO PRN; -ceFAZolin 3 GM in SODIUM CHLORIDE 0.9% 100 ML IVPB PRN
--- NOTE | 2020-12-27 07:13 | P.GSHP ---
History of Present Illness H&P Date: 12/27/20 CHIEF COMPLAINT: GERD HISTORY OF PRESENT ILLNESS: The patient is a 40-year-old male who presents reports gastroesophageal reflux disease. Upper endoscopy was offered for further evaluation and management. PAST MEDICAL HISTORY: Please see list. PAST SURGICAL HISTORY: Please see list. MEDICATIONS: Please see list. ALLERGIES: Please see list. SOCIAL HISTORY: No illicit drug use FAMILY HISTORY: No reports of Crohn disease or ulcerative colitis. REVIEW OF ORGAN SYSTEMS: CONSTITUTIONAL: No reports of fevers or chills. GI: Denies any blood in stools or constipation. PHYSICAL EXAM: VITAL SIGNS: Stable GENERAL: Well-developed and pleasant in no acute distress. HEENT: No scleral icterus. Extraocular movements grossly intact. Moist buccal mucosa. NECK: Supple without lymphadenopathy. CHEST: Unlabored respirations. Equal bilateral excursions. CARDIOVASCULAR: Regular rate and rhythm. Distal 2+ pulses. ABDOMEN: Soft, nondistended. MUSCULOSKELETAL: No clubbing, cyanosis, or edema. ASSESSMENT: 1. Gastroesophageal reflux disease PLAN: 1. Recommend proceeding with an upper endoscopy Past Medical History Past Medical History: Hypertension, Sleep Apnea/CPAP/BIPAP Additional Past Medical History / Comment(s): C-PAP MACHINE History of Any Multi-Drug Resistant Organisms: None Reported Past Surgical History: Hernia Repair Additional Past Surgical History / Comment(s): UMBILICAL HERNIA (11/26/20) Past Anesthesia/Blood Transfusion Reactions: No Reported Reaction Additional Past Anesthesia/Blood Transfusion Reaction / Comment(s): . Past Psychological History: Anxiety, Depression Smoking Status: Former smoker Past Alcohol Use History: Rare Additional Past Alcohol Use History / Comment(s): smoked since 15 quit 09/2020 Past Drug Use History: Marijuana Additional Drug Use History / Comment(s): CURRENT MARIJUANA USE - Past Family History Mother Family Medical History: No Reported History Medications and Allergies Home Medications Medication Instructions Recorded Confirmed Type Lisinopril-Hctz 20-12.5 mg 1 tab PO DAILY 06/08/19 12/24/20 History [Zestoretic 20-12.5] amLODIPine [Norvasc] 5 mg PO DAILY 06/08/19 12/24/20 History hydrOXYzine HCL [Atarax] 10 mg PO TID PRN 06/08/19 12/24/20 History traZODone HCL [Desyrel] 100 mg PO HS PRN 06/08/19 12/24/20 History Carvedilol [Coreg] 12.5 mg PO BID 11/22/20 12/24/20 History Acetaminophen Tab [Tylenol Tab] 1,000 mg PO Q6HR PRN #30 tablet 11/26/2012/09 Rx Multivit-Min/Folic/Vit K/Lycop 1 each PO DAILY 12/24/20 12/24/20 History [Men's Multivitamin Tablet] buPROPion XL [Wellbutrin Xl] 150 mg PO DAILY 12/24/20 12/24/20 History Allergies Allergy/AdvReac Type Severity Reaction Status Date / Time No Known Allergies Allergy Verified 12/24/20 08:14
[2020-12-27 07:22] VITALS: TEMP 97
[2020-12-27] MEDS ORDERED: LACTATED RINGERS 1,000 ML IV ONE (07:28)
[2020-12-27] MEDS ORDERED: PROPOFOL 10 MG/ML 20 ML VIAL IV ONE (07:58)
[2020-12-27] MEDS ORDERED: KETAMINE 10 MG/ML 20 ML VIAL ONE (07:58)
[2020-12-27] MEDS ORDERED: LIDOCAINE 1% INJ 10MG/ML (20 ML MDV) ONE (07:58)
[2020-12-27] MEDS ORDERED: GLYCOPYRROLATE 0.2 MG/ML 2 ML VIAL ONE (07:58)
--- NOTE | 2020-12-27 08:13 | P.PCN ---
Date of Procedure: 12/27/20 Description of Procedure: PREOPERATIVE DIAGNOSIS: Gastroesophageal reflux disease. Morbid obesity. POSTOPERATIVE DIAGNOSIS: Morbid obesity. Gastritis. Gastroesophageal reflux disease. Diaphragmatic hiatal hernia Retained food OPERATION: Esophagogastroduodenoscopy with biopsies along antrum. SURGEON: Stella Castillo MD ANESTHESIA: MAC. INDICATIONS: The patient is a 40-year-old male who presents with a history of reflux disease. Benefits and risks of the procedure were described. Informed consent was obtained. DESCRIPTION: The patient was brought into the endoscopy suite and laid in the left lateral decubitus position. An Olympus gastroscope was passed along the posterior oropharynx down to the distal esophagus where the squamocolumnar junction was encountered at 43 cm from the incisors. The stomach was entered and no bile reflux was found. Additional findings are listed below. Biopsies with cold forceps were obtained of the antrum. The first through third portion of the duodenum was examined and unremarkable. Retroflexion of the scope confirmed Hill grade 3 lower esophageal valve. The squamocolumnar junction demonstrated LA grade B erosive esophagitis. The stomach was desufflated. The patient tolerated the procedure well. FINDINGS: Squamocolumnar junction 43 cm from the incisors. Diaphragmatic hiatus at 46 cm. Hiatal hernia, 3 cm Hill grade 3 lower esophageal valve. LA grade B erosive esophagitis. No active duodenitis. Chronic gastritis Moderate retained food RECOMMENDATIONS: Upper endoscopy as needed. Plan - Discharge Summary New Discharge Prescriptions: Continue traZODone HCL [Desyrel] 100 mg PO HS PRN PRN Reason: Insomnia hydrOXYzine HCL [Atarax] 10 mg PO TID PRN PRN Reason: Anxiety amLODIPine [Norvasc] 5 mg PO DAILY Lisinopril-Hctz 20-12.5 mg [Zestoretic 20-12.5] 1 tab PO DAILY Carvedilol [Coreg] 12.5 mg PO BID Acetaminophen Tab [Tylenol] 1,000 mg PO Q6HR PRN #30 tablet PRN Reason: Pain buPROPion XL [Wellbutrin XL] 150 mg PO DAILY Multivit-Min/Folic/Vit K/Lycop [Men's Multivitamin Tablet] 1 each PO DAILY Discharge Medication List Lisinopril-Hctz 20-12.5 mg [Zestoretic 20-12.5] 1 tab PO DAILY 06/08/19 [History] amLODIPine [Norvasc] 5 mg PO DAILY 06/08/19 [History] hydrOXYzine HCL [Atarax] 10 mg PO TID PRN 06/08/19 [History] traZODone HCL [Desyrel] 100 mg PO HS PRN 06/08/19 [History] Carvedilol [Coreg] 12.5 mg PO BID 11/22/20 [History] Acetaminophen Tab [Tylenol] 1,000 mg PO Q6HR PRN #30 tablet 11/26/20 [Rx] Multivit-Min/Folic/Vit K/Lycop [Men's Multivitamin Tablet] 1 each PO DAILY 12/24/20 [History] buPROPion XL [Wellbutrin XL] 150 mg PO DAILY 12/24/20 [History] Follow up Appointment(s)/Referral(s): Stlela Castillo MD [STAFF PHYSICIAN] - 12/29/20 Patient Instructions/Handouts: Hiatal Hernia (DC), *Surgery [facility] - (Anesthesia) Endoscopy Discharge Instructions Discharge Disposition: HOME SELF-CARE
[2020-12-27 08:15] VITALS: RESP 16
[2020-12-27 08:30] VITALS: BP 141/83; PULSE 86
== END 2020-12-27 08:40 | disposition home or self-care (01) ==
LOC: ORWHC2ENDO 07:00
PROVIDERS: ATTEND Surgery Plastic and Reconstructive Surgery
DX: K22.10 Ulcer of esophagus without bleeding (principal); K29.50 Unspecified chronic gastritis without bleeding; K44.9 Diaphragmatic hernia without obstruction or gangrene; K21.9 Gastro-esophageal reflux disease without esophagitis; I10 Essential (primary) hypertension; G47.33 Obstructive sleep apnea (adult) (pediatric); Z99.89 Dependence on other enabling machines and devices; Z98.890 Other specified postprocedural states; F41.9 Anxiety disorder, unspecified; F32.9 Major depressive disorder, single episode, unspecified; Z87.891 Personal history of nicotine dependence; Z79.899 Other long term (current) drug therapy; E66.01 Morbid (severe) obesity due to excess calories; Z68.43 Body mass index [BMI] 50.0-59.9, adult
CPT/HCPCS: 88305; 43239; J2001; J2704

== ENCOUNTER → 2021-08-31 | Outpatient (CLI) | payer BC ==
--- NOTE | 2021-08-31 16:41 | P.HPBAR ---
Bariatric H&P - History & Physicial H&P Date: 08/31/21 History & Physicial: Visit/CC: Patient initial contact: Initial weight: Initial weight in pounds: Height: Initial BMI: Last weight: Current weight: Current weight in pounds: Current BMI: [place] body weight (based on NIH guidelines): Excess body weight loss: The patient is a 41 year-old M who presents for Bariatric Assessment. Looking into the sleeve gastrectomy. No heartburn. No stomach cancer or esophageal. Still has gallbladder. No abdominal pain. Has back pain. Has hip pain, knees. No ankle or feet pain. Highest weight is 485 pounds. Has tried intermittent fasting and gym 6x per week. Sister had the sleeve and is doing well for over 6 years. He has a cpap machine. I did hernia repair. Past Medical History Past Medical History: Hypertension, Sleep Apnea/CPAP/BIPAP Additional Past Medical History / Comment(s): C-PAP MACHINE History of Any Multi-Drug Resistant Organisms: None Reported Past Surgical History: Hernia Repair Additional Past Surgical History / Comment(s): UMBILICAL HERNIA (11/26/20) Past Anesthesia/Blood Transfusion Reactions: No Reported Reaction Additional Past Anesthesia/Blood Transfusion Reaction / Comm: . Past Psychological History: Anxiety, Depression Smoking Status: Former smoker Past Alcohol Use History: Rare Additional Past Alcohol Use History / Comment(s): smoked since 15 quit 09/2020 Past Drug Use History: Marijuana Additional Drug Use History / Comment(s): CURRENT MARIJUANA USE - Past Family History Mother Family Medical History: No Reported History Bariatric Checklist Checklist: Plan: Checklist: EGD: 1. Hiatal hernia: 2. H. Pylori: HgbA1c: Vitamin D: Smoking: Current every day smoker Primary care physician referral: Elia Psychiatry clearance: Cardiology clearance: Sleep study: Diet journal: VTE risk score: VTE risk level: Rehab needs at discharge:
[2021-08-31 17:12] VITALS: BP 137/77; PULSE 80; RESP 16; TEMP 97.7; BMI 56.5
== END | disposition home or self-care (01) ==
LOC: BARWHC3 15:35
PROVIDERS: ATTEND Surgery Plastic and Reconstructive Surgery
DX: E66.01 Morbid (severe) obesity due to excess calories (principal); Z68.43 Body mass index [BMI] 50.0-59.9, adult
CPT/HCPCS: 99211